=== PATIENT | female | born 1955 | race Caucasian/White ===

== ENCOUNTER 2021-11-07 16:07 | Inpatient (IN) | payer MEDICARE, BC ==
[2021-11-07] MEDS ORDERED: Ondansetron PF 4 MG/2 ML Vial ONE (17:28)
[2021-11-07] MEDS ORDERED: Lorazepam 2 MG/ML VIAL ONE (17:29)
[2021-11-07 17:40] LABS: CKMB 11.6 ng/mL (0-6.6)
[2021-11-07] MEDS ORDERED: Ondansetron PF 4 MG/2 ML Vial IVP PRN (18:29)
[2021-11-07] MEDS ORDERED: Ondansetron ODT 4 MG TAB PO PRN (18:29)
[2021-11-07] MEDS ORDERED: Pantoprazole 40 MG VIAL IVP SCH (18:30)
[2021-11-07] MEDS ORDERED: Benzonatate 100 MG CAP PO PRN (18:31)
[2021-11-07] MEDS ORDERED: Guaifenesin DM 100-10/5 ML UDCUP PO PRN (18:31)
[2021-11-07] MEDS ORDERED: Furosemide 40 MG/4 ML VIAL SLOW IVP SCH (18:45)
[2021-11-07 18:58] LABS: #Monocytes 0.6 10x3/uL (0.0-1.1); #Neutrophils 5.5 10x3/uL (1.5-8.4); %Basophils 0.1 % (0.0-2.0); %Lymphocytes 11.8 % (18.0-47.0); %Monocytes 7.9 % (0.0-10.0); %Neutrophils 79.8 % (40.0-75.0); Hemoglobin 6.8 g/dL (12.0-15.5); Mean Corpuscular HGB CONC 29.4 g/dL (32.0-36.0); Mean Corpuscular Hemoglobin 24.5 pg (27.0-33.0); Mean Corpuscular Volume 83.1 fl (81.6-98.3); Mean Platelet Volume 9.9 fl (7.4-10.4); Platelet Count 156 10x3/uL (150-450); RBC Distribution Width 18.4 % (11.5-14.5); Red Blood Cell (RBC) Count 2.78 10x6/uL (3.90-5.03); White Blood Cell (WBC) Count 6.9 10x3/uL (3.5-10.5)
[2021-11-07 19:02] LABS: Prothrombin Time 11.2 sec (9.5-12.1)
[2021-11-07] MEDS ORDERED: Aspirin Chewable 81 MG TAB ONE (19:04)
[2021-11-07 19:06] LABS: Iron 17 ug/dL (50-170); Iron Binding Capacity, Total 429 mcg/dL (265-497)
[2021-11-07] MEDS ORDERED: Pantoprazole 40 MG VIAL ONE (19:09)
[2021-11-07] MEDS ORDERED: Ventolin HFA Inhaler 60 PUFF INHALER ONE (19:14)
[2021-11-07] MEDS: Ventolin HFA Inhaler 60 PUFF INHALER INH SCH (19:15)
[2021-11-07 19:16] LABS: Anisocytosis SLIGHT = 6-15 cells (100X) (0-5/hpf); Hypochromia MODERATE=16-30 cells (100X) (0-5/hpf); Polychromasia SLIGHT = 2-3 cells (100X) (0-2/hpf)
[2021-11-07 19:17] LABS: Platelet Morphology Comment Appears Adequate; Stomatocytes SLIGHT = 2-5 cells (100X) (0-1/hpf)
[2021-11-07 19:25] LABS: Ferritin 39.59 ng/mL (10-291)
[2021-11-07 21:16] LABS: Troponin I 2.926 ng/mL (< 0.028)
[2021-11-07] MEDS ORDERED: Nitroglycerin 2% Ointment 1 INCH/1 GM Packet ONE (21:25)
[2021-11-07] MEDS ORDERED: Acetaminophen 325 MG TAB ONE (21:25)
[2021-11-07] MEDS: Acetaminophen 325 MG TAB PO PRN (21:26)
[2021-11-07] MEDS: Nitroglycerin 2% Ointment 1 INCH/1 GM Packet TOP SCH (21:35)
[2021-11-07] MEDS ORDERED: Furosemide 40 MG/4 ML VIAL ONE (22:11)
[2021-11-08] MEDS ORDERED: Lorazepam 0.5 MG TAB PO SCH (01:15)
[2021-11-08] MEDS ORDERED: traMADol HCl 50 MG TAB PO SCH (01:15)
[2021-11-08 03:28] VITALS: BMI 35.6
[2021-11-08] MEDS ORDERED: Furosemide 40 MG/4 ML VIAL SLOW IVP SCH (06:00)
[2021-11-08] MEDS: Nitroglycerin 2% Ointment 1 INCH/1 GM Packet TOP SCH (06:13)
[2021-11-08 06:24] LABS: #Monocytes 0.6 10x3/uL (0.0-1.1); #Neutrophils 5.4 10x3/uL (1.5-8.4); %Basophils 0.3 % (0.0-2.0); %Eosinophils 0.4 % (0.0-6.0); %Lymphocytes 15.7 % (18.0-47.0); %Monocytes 7.9 % (0.0-10.0); %Neutrophils 75.4 % (40.0-75.0); Hemoglobin 7.9 g/dL (12.0-15.5); Mean Corpuscular HGB CONC 28.9 g/dL (32.0-36.0); Mean Corpuscular Hemoglobin 24.6 pg (27.0-33.0); Mean Platelet Volume 9.8 fl (7.4-10.4); Platelet Count 162 10x3/uL (150-450); RBC Distribution Width 18.3 % (11.5-14.5); Red Blood Cell (RBC) Count 3.21 10x6/uL (3.90-5.03); White Blood Cell (WBC) Count 7.1 10x3/uL (3.5-10.5)
[2021-11-08 06:46] LABS: Anion Gap 15 mmol/L (10-20); BUN (Urea Nitrogen) 18 mg/dL (9.8-20.1); Calc. Creatinine Clearance 55 mL/min (70-130); Calcium 9.2 mg/dL (7.8-10.44); Carbon Dioxide 27 mmol/L (23-31); Chloride 107 mmol/L (98-107); Glucose 93 mg/dL (80-115); Magnesium 1.7 mg/dL (1.6-2.6); Potassium 3.9 mmol/L (3.5-5.1); Sodium 145 mmol/L (136-145)
[2021-11-08 06:52] LABS: Hypochromia MODERATE=16-30 cells (100X) (0-5/hpf); Microcytosis SLIGHT = 6-15 cells (100X) (0-5/hpf); Platelet Morphology Comment Appears Adequate
[2021-11-08] MEDS: Ventolin HFA Inhaler 60 PUFF INHALER INH SCH ×2 (07:26→13:58)
[2021-11-08] MEDS: Acetaminophen 325 MG TAB PO PRN (08:37)
[2021-11-08] MEDS ORDERED: Zinc Sulfate 220 MG CAP PO SCH (09:00)
[2021-11-08] MEDS ORDERED: Cholecalciferol 1,000 UNITS (25 MCG) TAB PO SCH (09:00)
[2021-11-08] MEDS ORDERED: Azithromycin 500 MG in Sodium Chloride 0.9% 250 ML 250 ML IVPB SCH (09:00)
[2021-11-08] MEDS ORDERED: Pantoprazole 40 MG VIAL IVP SCH ×2 (09:00)
[2021-11-08] MEDS ORDERED: Ascorbic Acid 500 mg Chewable Tablet PO SCH (09:00)
[2021-11-08] MEDS ORDERED: traMADol HCl 50 MG TAB PO PRN (09:44)
[2021-11-08] MEDS ORDERED: Tiotropium Bromide 4 GM INHALER IH SCH (10:45)
[2021-11-08 12:25] LABS: Hemoglobin 7.6 g/dL (12.0-15.5); Platelet Count 154 10x3/uL (150-450)
[2021-11-08] MEDS ORDERED: Gabapentin 300 MG CAP PO SCH (15:00)
[2021-11-08 16:12] VITALS: BP 150/75; TEMP 98.3
[2021-11-08] MEDS ORDERED: Mometasone/Formoterol 60 PUFF AER INH SCH (18:30)
[2021-11-08] MEDS ORDERED: traZODone HCl 50 MG TAB PO SCH (21:00)
[2021-11-08] MEDS ORDERED: Ivabradine 5 MG TAB PO SCH (21:00)
[2021-11-09] MEDS ORDERED: Aspirin 81 mg Enteric Coated Tablet PO SCH (09:00)
[2021-11-09] MEDS ORDERED: Clopidogrel Bisulfate 75 MG TAB PO SCH (09:00)
[2021-11-09] MEDS ORDERED: Carvedilol 25 MG TAB PO SCH (09:00)
[2021-11-09] MEDS ORDERED: Allopurinol 300 MG TAB PO SCH (09:00)
[2021-11-09] MEDS ORDERED: Furosemide 40 MG/4 ML VIAL SLOW IVP SCH (09:00)
[2021-11-09] MEDS ORDERED: Cholecalciferol 1,000 UNITS (25 MCG) TAB PO SCH (09:00)
[2021-11-09] MEDS ORDERED: Escitalopram Oxalate 10 mg Tablet PO SCH (09:00)
[2021-11-09] MEDS ORDERED: Tiotropium Bromide 4 GM INHALER IH SCH (09:00)
== END 2021-11-08 15:50 | disposition left against medical advice (07) | DRG 177 ==
LOC: CSHERS 16:07 → CSHERHOLD 17:48 → CSHTELE 23:39
PROVIDERS: ADMIT Family Medicine; ATTEND Family Medicine
PROC: 30233N1 Transfusion of Nonautologous Red Blood Cells into Peripheral Vein, Percutaneous Approach (ICD-10-PCS; principal; 2021-11-07)
PROC: 8E0ZXY6 Isolation (ICD-10-PCS; 2021-11-07)
DX: U07.1 COVID-19 (principal); I21.A1 Myocardial infarction type 2; I50.23 Acute on chronic systolic (congestive) heart failure; D62 Acute posthemorrhagic anemia; J44.1 Chronic obstructive pulmonary disease with (acute) exacerbation; K92.2 Gastrointestinal hemorrhage, unspecified; I25.10 Atherosclerotic heart disease of native coronary artery without angina pectoris; I11.0 Hypertensive heart disease with heart failure; I25.2 Old myocardial infarction; Z95.810 Presence of automatic (implantable) cardiac defibrillator; Z88.8 Allergy status to other drugs, medicaments and biological substances; Z79.82 Long term (current) use of aspirin; Z79.02 Long term (current) use of antithrombotics/antiplatelets; Z79.899 Other long term (current) drug therapy; Z90.49 Acquired absence of other specified parts of digestive tract; Z90.710 Acquired absence of both cervix and uterus; Z87.891 Personal history of nicotine dependence
CPT/HCPCS: 36415; 36416; 36430; 80048; 82553; 82607; 82728; 82746; 83540; 83550; 83735; 84443; 84484; 85025; 85046; 85610; 86140; 86850; 86900; 86901; 93005; 93010; 94760; C9113; J0456; J1940; J2060; J2405; J7050; P9016

== ENCOUNTER 2021-12-15 21:16 | Inpatient (IN) | payer MEDICARE, BC ==
[2021-12-15] MEDS ORDERED: Amiodarone In Dextrose 200 ML ONE (21:24)
[2021-12-15] MEDS ORDERED: Magnesium 2 GM/50 ML BAG (IN WATER) ONE ×2 (21:26→22:35)
[2021-12-15] MEDS ORDERED: Fentanyl 100 MCG/2 ML VIAL ONE (21:30)
[2021-12-15 21:41] LABS: #Monocytes 0.7 10x3/uL (0.0-1.1); %Basophils 0.2 % (0.0-2.0); %Lymphocytes 5.3 % (18.0-47.0); %Monocytes 5.6 % (0.0-10.0); %Neutrophils 88.7 % (40.0-75.0); Hemoglobin 10.5 g/dL (12.0-15.5); Mean Corpuscular HGB CONC 30.8 g/dL (32.0-36.0); Mean Corpuscular Hemoglobin 25.5 pg (27.0-33.0); Mean Corpuscular Volume 82.8 fl (81.6-98.3); Mean Platelet Volume 9.6 fl (7.4-10.4); Platelet Count 219 10x3/uL (150-450); RBC Distribution Width 19.7 % (11.5-14.5); Red Blood Cell (RBC) Count 4.12 10x6/uL (3.90-5.03); White Blood Cell (WBC) Count 12.4 10x3/uL (3.5-10.5)
[2021-12-15] MEDS ORDERED: Metoprolol Tartrate 5 MG/5 ML VIAL ONE (21:46)
[2021-12-15 21:55] LABS: INR-International Normal Ratio 1.1; PTT 26.6 sec (22.0-33.0); Prothrombin Time 12.4 sec (9.5-12.1)
[2021-12-15 21:56] LABS: ALT (SGPT) 9 U/L (8-55); AST (SGOT) 24 U/L (5-34); Albumin 4.2 g/dL (3.4-4.8); Alkaline Phosphatase 126 U/L (40-110); Anion Gap 22 mmol/L (10-20); BUN (Urea Nitrogen) 13 mg/dL (9.8-20.1); Bilirubin, Total 0.3 mg/dL (0.2-1.2); CK (CPK) 142 U/L (29-168); Calc. Creatinine Clearance 0 mL/min (70-130); Calcium 9.4 mg/dL (7.8-10.44); Carbon Dioxide 18 mmol/L (23-31); Chloride 100 mmol/L (98-107); Globulin 3.1 g/dL (2.4-3.5); Glucose 247 mg/dL (80-115); Lipase 15 U/L (8-78); Magnesium 1.3 mg/dL (1.6-2.6); Protein, Total 7.3 g/dL (5.8-8.1); Sodium 137 mmol/L (136-145)
[2021-12-15 21:58] LABS: Potassium 2.8 mmol/L (3.5-5.1)
[2021-12-15] MEDS ORDERED: Morphine 4 MG/ML VIAL ONE (22:01)
[2021-12-15] MEDS ORDERED: Potassium Chloride 20 MEQ TAB ONE (22:07)
[2021-12-15 22:19] LABS: CKMB 8.6 ng/mL (0-6.6)
[2021-12-15] MEDS ORDERED: Potassium Chloride 20 MEQ/100 ML PREMIX BAG ONE (22:35)
[2021-12-15 22:43] LABS: SARS-CoV-2 NAA Rapid Test Not Detected (NotDetected)
[2021-12-15] MEDS ORDERED: Aspirin Chewable 81 MG TAB ONE (23:31)
[2021-12-15] MEDS ORDERED: Acetaminophen 500 MG TAB ONE (23:32)
[2021-12-15] MEDS ORDERED: Enoxaparin Sodium 80 MG/0.8 ML SYRINGE ONE (23:32)
[2021-12-16] MEDS ORDERED: Morphine 4 MG/ML VIAL ONE (01:48)
[2021-12-16] MEDS ORDERED: Acetaminophen 325 MG TAB PO PRN (02:05)
[2021-12-16] MEDS ORDERED: Amiodarone In Dextrose 0 ML ONE (03:10)
[2021-12-16] MEDS ORDERED: Metoprolol Tartrate 5 MG/5 ML VIAL IVP SCH ×3 (05:15→10:00)
[2021-12-16] MEDS ORDERED: Metoprolol Tartrate 5 MG/5 ML VIAL ONE (05:27)
[2021-12-16] MEDS ORDERED: Nitroglycerin 2% Ointment 1 INCH/1 GM Packet ONE (05:28)
[2021-12-16] MEDS ORDERED: Amiodarone 450 MG, Admixture Fee 1 EACH in Dextrose 5% in Water 250 ML IVPB SCH (06:30)
[2021-12-16] MEDS ORDERED: Nitroglycerin 2% Ointment 1 INCH/1 GM Packet TOP SCH (06:30)
[2021-12-16] MEDS: Ipratropium Bromide 2.5 ml Neb NEB SCH ×3 (07:11→19:25)
[2021-12-16 08:01] LABS: Anion Gap 18 mmol/L (10-20); BUN (Urea Nitrogen) 14 mg/dL (9.8-20.1); Calc. Creatinine Clearance 0 mL/min (70-130); Carbon Dioxide 21 mmol/L (23-31); Chloride 102 mmol/L (98-107); Potassium 4.2 mmol/L (3.5-5.1); Sodium 137 mmol/L (136-145)
[2021-12-16 08:02] LABS: Calcium 9.6 mg/dL (7.8-10.44); Glucose 124 mg/dL (80-115); Magnesium 2.3 mg/dL (1.6-2.6)
[2021-12-16 08:03] LABS: Troponin I 5.634 ng/mL (< 0.028)
[2021-12-16 08:09] LABS: #Neutrophils 9.5 10x3/uL (1.5-8.4); %Basophils 0.3 % (0.0-2.0); %Lymphocytes 10.5 % (18.0-47.0); %Monocytes 8.8 % (0.0-10.0); %Neutrophils 79.9 % (40.0-75.0); Hemoglobin 10.1 g/dL (12.0-15.5); Mean Corpuscular HGB CONC 30.8 g/dL (32.0-36.0); Mean Corpuscular Hemoglobin 25.6 pg (27.0-33.0); Mean Platelet Volume 9.2 fl (7.4-10.4); Platelet Count 200 10x3/uL (150-450); RBC Distribution Width 19.6 % (11.5-14.5); Red Blood Cell (RBC) Count 3.95 10x6/uL (3.90-5.03); White Blood Cell (WBC) Count 11.8 10x3/uL (3.5-10.5)
[2021-12-16 08:14] LABS: CKMB 31.7 ng/mL (0-6.6)
[2021-12-16] MEDS: Clopidogrel Bisulfate 75 MG TAB PO SCH (08:28)
[2021-12-16] MEDS: Spironolactone 25 MG TAB PO SCH (08:28)
[2021-12-16] MEDS: Ivabradine 5 MG TAB PO SCH ×2 (08:28→21:33)
[2021-12-16] MEDS: Carvedilol 25 MG TAB PO SCH ×2 (08:28→16:38)
[2021-12-16] MEDS: Ubidecarenone 50 MG CAP PO SCH (08:37)
[2021-12-16] MEDS: Mometasone 100 MCG/Formoterol 5 MCG 120 PUFF INHALER INH SCH ×2 (08:38→19:25)
[2021-12-16] MEDS ORDERED: Escitalopram Oxalate 10 mg Tablet PO SCH (09:00)
[2021-12-16 09:15] VITALS: BMI 33.6
[2021-12-16 09:50] LABS: Amphetamine Not Detected (NotDetected); Barbiturates Screen Detected (NotDetected); Benzodiazepine Screen Not Detected (NotDetected); Cocaine Metabolite Screen Not Detected (NotDetected); Methadone Not Detected (NotDetected); Methamphetamine Not Detected (NotDetected); Opiate Screen Detected (NotDetected); Oxycodone Screen Not Detected (NotDetected); Phencyclidine (PCP) Not Detected (NotDetected); THC/Cannabinoid Screen Detected (NotDetected); Tricyclic Screen Not Detected (NotDetected)
[2021-12-16] MEDS ORDERED: Aspirin 81 mg Enteric Coated Tablet PO SCH (10:00)
[2021-12-16 10:19] LABS: Troponin I 4.314 ng/mL (< 0.028)
[2021-12-16] MEDS ORDERED: Furosemide 20 MG TAB PO SCH (10:30)
[2021-12-16] MEDS ORDERED: Enoxaparin Sodium 80 MG/0.8 ML SYRINGE SC SCH (11:15)
[2021-12-16 11:34] LABS: INR-International Normal Ratio 1.1; PTT 29.6 sec (22.0-33.0); Prothrombin Time 12.3 sec (9.5-12.1)
[2021-12-16] MEDS: Amiodarone In Dextrose 360 MG in Premix Bag 1 BAG IVPB SCH (11:45)
[2021-12-16] MEDS ORDERED: Ondansetron HCl/PF 4 MG in Sodium Chloride 0.9% 50 ML IVPB PRN ×2 (12:30→12:40)
[2021-12-16] MEDS: Furosemide 20 MG TAB PO SCH (14:11)
[2021-12-16] MEDS ORDERED: Promethazine HCl 12.5 MG in Sodium Chloride 0.9% 50 ML IVPB PRN (16:08)
[2021-12-16] MEDS: hydrALAZINE 20 MG/ML VIAL SLOW IVP PRN (18:05)
[2021-12-16] MEDS ORDERED: Mometasone/Formoterol 60 PUFF AER INH SCH (19:00)
[2021-12-16] MEDS: Acetaminophen 325 MG TAB PO PRN (20:10)
[2021-12-16] MEDS ORDERED: traZODone HCl 50 MG TAB PO SCH (21:00)
[2021-12-16] MEDS: hydrALAZINE 25 MG TAB PO SCH (21:33)
[2021-12-16] MEDS: Enoxaparin Sodium 80 MG/0.8 ML SYRINGE SC SCH (21:33)
[2021-12-16] MEDS ORDERED: traMADol HCl 50 MG TAB PO SCH (22:00)
[2021-12-17] MEDS: Acetaminophen 325 MG TAB PO PRN ×2 (01:04→08:16)
[2021-12-17] MEDS: Amiodarone In Dextrose 360 MG in Premix Bag 1 BAG IVPB SCH (01:05)
[2021-12-17] MEDS: Ipratropium Bromide 2.5 ml Neb NEB SCH ×4 (01:19→18:45)
[2021-12-17] MEDS: hydrALAZINE 20 MG/ML VIAL SLOW IVP PRN ×2 (02:35→13:40)
[2021-12-17 04:56] LABS: #Monocytes 0.9 10x3/uL (0.0-1.1); #Neutrophils 8.5 10x3/uL (1.5-8.4); %Basophils 0.2 % (0.0-2.0); %Eosinophils 0.2 % (0.0-6.0); %Lymphocytes 12.2 % (18.0-47.0); %Monocytes 8.3 % (0.0-10.0); %Neutrophils 78.8 % (40.0-75.0); Hemoglobin 10.3 g/dL (12.0-15.5); Mean Corpuscular HGB CONC 30.8 g/dL (32.0-36.0); Mean Corpuscular Hemoglobin 25.7 pg (27.0-33.0); Mean Corpuscular Volume 83.3 fl (81.6-98.3); Mean Platelet Volume 9.7 fl (7.4-10.4); Platelet Count 211 10x3/uL (150-450); RBC Distribution Width 19.8 % (11.5-14.5); Red Blood Cell (RBC) Count 4.01 10x6/uL (3.90-5.03); White Blood Cell (WBC) Count 10.8 10x3/uL (3.5-10.5)
[2021-12-17 05:03] LABS: Anion Gap 16 mmol/L (10-20); BUN (Urea Nitrogen) 12 mg/dL (9.8-20.1); Calc. Creatinine Clearance 59 mL/min (70-130); Carbon Dioxide 23 mmol/L (23-31); Chloride 101 mmol/L (98-107); Glucose 128 mg/dL (80-115); Magnesium 1.6 mg/dL (1.6-2.6); Potassium 3.3 mmol/L (3.5-5.1); Sodium 137 mmol/L (136-145)
[2021-12-17] MEDS: Mometasone/Formoterol 60 PUFF AER INH SCH ×2 (06:59→18:45)
[2021-12-17] MEDS ORDERED: Electrolyte Replacement Protocol 1 EACH FS SCH (07:45)
[2021-12-17] MEDS: Clopidogrel Bisulfate 75 MG TAB PO SCH (08:14)
[2021-12-17] MEDS: Enoxaparin Sodium 80 MG/0.8 ML SYRINGE SC SCH ×2 (08:14→21:06)
[2021-12-17] MEDS: Spironolactone 25 MG TAB PO SCH (08:14)
[2021-12-17] MEDS: Carvedilol 25 MG TAB PO SCH ×2 (08:14→16:41)
[2021-12-17] MEDS: Aspirin 81 mg Enteric Coated Tablet PO SCH (08:14)
[2021-12-17] MEDS: hydrALAZINE 25 MG TAB PO SCH (08:15)
[2021-12-17] MEDS: Furosemide 20 MG TAB PO SCH ×2 (08:15→13:44)
[2021-12-17] MEDS: Ubidecarenone 50 MG CAP PO SCH (08:16)
[2021-12-17] MEDS: Ivabradine 5 MG TAB PO SCH ×2 (08:16→21:06)
[2021-12-17] MEDS ORDERED: Magnesium Sulfate 4 GM in Sodium Chloride 0.9% 250 ML 250 ML IVPB SCH (08:30)
[2021-12-17] MEDS ORDERED: Furosemide 40 MG/4 ML VIAL SLOW IVP SCH (09:00)
[2021-12-17] MEDS ORDERED: Potassium Chloride 20 MEQ TAB PO SCH (09:00)
[2021-12-17] MEDS ORDERED: hydrALAZINE 25 MG TAB PO SCH ×2 (09:00→15:00)
[2021-12-17] MEDS: Magnesium 2 GM/50 ML 2 GM in Premix Bag 1 BAG IVPB SCH ×2 (09:42→11:08)
[2021-12-17] MEDS ORDERED: Communication Order-Pharmacy FS SCH (11:15)
[2021-12-17] MEDS: traMADol HCl 50 MG TAB PO PRN ×2 (14:19→22:07)
[2021-12-17] MEDS ORDERED: ALPRAZolam 0.25 MG TAB PO PRN (14:59)
[2021-12-17] MEDS: Potassium Chloride 20 MEQ TAB PO SCH (17:29)
[2021-12-17] MEDS ORDERED: Amiodarone 200 MG TAB PO SCH (21:00)
[2021-12-18] MEDS: Ipratropium Bromide 2.5 ml Neb NEB SCH ×3 (01:05→13:50)
[2021-12-18] MEDS: hydrALAZINE 20 MG/ML VIAL SLOW IVP PRN ×2 (01:51→10:30)
[2021-12-18] MEDS ORDERED: Labetalol HCl 100 MG/20 ML VIAL SLOW IVP SCH (03:45)
[2021-12-18] MEDS ORDERED: Labetalol HCl 100 MG/20 ML VIAL SLOW IVP PRN (04:00)
[2021-12-18 04:21] LABS: Magnesium 2.3 mg/dL (1.6-2.6); Potassium 4.1 mmol/L (3.5-5.1)
[2021-12-18 04:28] LABS: Phosphorus 1.1 mg/dL (2.3-4.7)
[2021-12-18] MEDS: Mometasone/Formoterol 60 PUFF AER INH SCH (07:00)
[2021-12-18] MEDS ORDERED: Nitroglycerin 50 MG/250 ML BOT 250 ML ONE ×2 (07:09)
[2021-12-18] MEDS ORDERED: Heparin 10,000 UNITS/ 10 ML VIAL ONE ×2 (07:10)
[2021-12-18] MEDS ORDERED: Verapamil 5 MG/2 ML VIAL ONE (07:10)
[2021-12-18] MEDS ORDERED: Adenosine 6 MG/2 ML VIAL ONE (07:11)
[2021-12-18] MEDS ORDERED: Bivalirudin 250 MG VIAL ONE (07:11)
[2021-12-18] MEDS ORDERED: Lidocaine 1% PF 5 ML VIAL ONE (07:28)
[2021-12-18] MEDS ORDERED: Fentanyl 100 MCG/2 ML VIAL ONE (07:59)
[2021-12-18] MEDS ORDERED: Midazolam HCl 2 mg/2 ml Vial ONE (08:00)
[2021-12-18] MEDS ORDERED: Atropine Sulfate 0.4 mg/1 ml Vial ONE (08:08)
[2021-12-18] MEDS: PHOS-NAK 1 PKT PACK PO SCH ×3 (08:08→13:14)
[2021-12-18] MEDS ORDERED: Ondansetron PF 4 MG/2 ML Vial ONE (08:08)
[2021-12-18] MEDS ORDERED: Nitroglycerin 0.4 MG TAB (25 Tab Bottle) SL PRN (08:37)
[2021-12-18] MEDS ORDERED: Acetaminophen/Codeine 30-300mg Tablet PO PRN ×2 (08:37)
[2021-12-18] MEDS ORDERED: Sodium Chloride 0.9% 200 ML IV PRN (08:37)
[2021-12-18] MEDS ORDERED: ALPRAZolam 0.25 MG TAB PO PRN (08:40)
[2021-12-18] MEDS: Potassium Chloride 20 MEQ TAB PO SCH (10:39)
[2021-12-18] MEDS: Carvedilol 25 MG TAB PO SCH (10:39)
[2021-12-18] MEDS: Furosemide 20 MG TAB PO SCH ×2 (10:40→13:15)
[2021-12-18] MEDS: Spironolactone 25 MG TAB PO SCH (10:41)
[2021-12-18] MEDS: Ivabradine 5 MG TAB PO SCH (10:43)
[2021-12-18] MEDS: Ubidecarenone 50 MG CAP PO SCH (10:45)
[2021-12-18 10:54] VITALS: BP 153/102
[2021-12-18] MEDS: Clopidogrel Bisulfate 75 MG TAB PO SCH (11:51)
[2021-12-18] MEDS: Aspirin 81 mg Enteric Coated Tablet PO SCH (11:52)
== END 2021-12-18 16:30 | disposition home or self-care (01) | DRG 280 ==
LOC: CSHERS 21:16 → CSHIMCU 12-16 02:21
PROVIDERS: ADMIT Family Medicine; ATTEND Internal Medicine
PROC: 4A023N7 Measurement of Cardiac Sampling and Pressure, Left Heart, Percutaneous Approach (ICD-10-PCS; principal; 2021-12-18)
PROC: B2111ZZ Fluoroscopy of Multiple Coronary Arteries using Low Osmolar Contrast (ICD-10-PCS; 2021-12-18)
DX: I47.1 Supraventricular tachycardia (principal); I21.4 Non-ST elevation (NSTEMI) myocardial infarction; I50.23 Acute on chronic systolic (congestive) heart failure; J44.9 Chronic obstructive pulmonary disease, unspecified; R94.31 Abnormal electrocardiogram [ECG] [EKG]; E87.6 Hypokalemia; I11.0 Hypertensive heart disease with heart failure; I25.10 Atherosclerotic heart disease of native coronary artery without angina pectoris; Z20.822 Contact with and (suspected) exposure to COVID-19; E83.42 Hypomagnesemia; I25.5 Ischemic cardiomyopathy; I25.82 Chronic total occlusion of coronary artery; Z95.810 Presence of automatic (implantable) cardiac defibrillator; Z90.710 Acquired absence of both cervix and uterus; Z90.49 Acquired absence of other specified parts of digestive tract; Z87.891 Personal history of nicotine dependence; Z88.8 Allergy status to other drugs, medicaments and biological substances; Z79.02 Long term (current) use of antithrombotics/antiplatelets; Z79.899 Other long term (current) drug therapy
CPT/HCPCS: 36415; 71045; 71275; 80048; 80306; 82550; 82553; 83690; 83735; 83880; 84100; 84132; 84443; 84484; 85025; 85610; 85730; 86850; 86900; 86901; 93005; 93010; 93306; 93458; 94640; 94664; 94760; 96365; 96366; 96368; 96372; 96375; 96376; 97139; 99152; 99153; J0153; J0282; J0360; J0461; J0583; J1644; J1650; J2250; J2270; J2405; J3010; J3475; J3480; U0002

== ENCOUNTER 2021-12-22 06:21 | Emergency (ER) | payer MEDICARE, BC ==
[2021-12-22 06:42] LABS: #Monocytes 1.4 10x3/uL (0.0-1.1); #Neutrophils 12.7 10x3/uL (1.5-8.4); %Basophils 0.1 % (0.0-2.0); %Eosinophils 0.1 % (0.0-6.0); %Lymphocytes 4.3 % (18.0-47.0); %Monocytes 9.5 % (0.0-10.0); %Neutrophils 84.4 % (40.0-75.0); Hemoglobin 7.9 g/dL (12.0-15.5); Mean Corpuscular HGB CONC 30.2 g/dL (32.0-36.0); Mean Corpuscular Volume 86.2 fl (81.6-98.3); Mean Platelet Volume 10.9 fl (7.4-10.4); Platelet Count 132 10x3/uL (150-450); RBC Distribution Width 19.2 % (11.5-14.5); Red Blood Cell (RBC) Count 3.04 10x6/uL (3.90-5.03)
[2021-12-22 06:44] LABS: Bilirubin Neg (Negative); Blood, Urine 50 (Negative); Clarity Cloudy (Clear); Glucose, Urine (Dipstick) Normal (Negative); Ketone, Urine Negative (Negative); Leukocyte 500 (Negative); Nitrite Negative (Negative); Protein, Urine (Dipstick) 100 mg/dl (Neg-Trace); Urobilinogen Normal mg/dL (Less than 2)
[2021-12-22] MEDS ORDERED: Cefepime 2 GM VIAL ONE (06:48)
[2021-12-22 06:55] LABS: ALT (SGPT) 11 U/L (8-55); AST (SGOT) 18 U/L (5-34); Albumin 3.6 g/dL (3.4-4.8); Alkaline Phosphatase 116 U/L (40-110); Anion Gap 19 mmol/L (10-20); BUN (Urea Nitrogen) 47 mg/dL (9.8-20.1); Bilirubin, Total 0.6 mg/dL (0.2-1.2); CK (CPK) 54 U/L (29-168); Calc. Creatinine Clearance 0 mL/min (70-130); Calcium 8.6 mg/dL (7.8-10.44); Carbon Dioxide 15 mmol/L (23-31); Chloride 102 mmol/L (98-107); Globulin 2.4 g/dL (2.4-3.5); Glucose 113 mg/dL (80-115); Lipase 37 U/L (8-78); Magnesium 1.5 mg/dL (1.6-2.6); Potassium 6.3 mmol/L (3.5-5.1); Sodium 130 mmol/L (136-145)
[2021-12-22 07:02] LABS: WBC/HPF Greater Than 50 HPF (0-3)
[2021-12-22 07:03] LABS: Bacteria/HPF 3+ HPF (None Seen); Squamous Epithelial 0-3 HPF (0-3)
[2021-12-22 07:18] LABS: CKMB 0.9 ng/mL (0-6.6)
[2021-12-22 07:46] LABS: SARS-CoV-2 NAA Rapid Test DETECTED (NotDetected)
[2021-12-22] MEDS ORDERED: Calcium Chloride 1 GM/10 ML Abboject SYRINGE ONE (07:47)
[2021-12-22] MEDS ORDERED: Sodium Bicarb 50 MEQ/50 ML VIAL ONE ×2 (07:48)
[2021-12-22 07:49] LABS: INR-International Normal Ratio 1.1; Prothrombin Time 12.3 sec (9.5-12.1)
[2021-12-22 09:07] LABS: PTT 32.6 sec (22.0-33.0)
[2021-12-22 09:14] LABS: Anion Gap 16 mmol/L (10-20); BUN (Urea Nitrogen) 44 mg/dL (9.8-20.1); Calc. Creatinine Clearance 0 mL/min (70-130); Calcium 9.1 mg/dL (7.8-10.44); Carbon Dioxide 15 mmol/L (23-31); Chloride 105 mmol/L (98-107); Glucose 121 mg/dL (80-115); Potassium 6.3 mmol/L (3.5-5.1); Sodium 130 mmol/L (136-145)
== END 2021-12-22 09:17 | disposition short-term general hospital (02) ==
LOC: CSHERS 06:21
DX: S06.5X9A Traumatic subdural hemorrhage with loss of consciousness of unspecified duration, initial encounter (principal); A41.89 Other specified sepsis; U07.1 COVID-19; A41.9 Sepsis, unspecified organism; N17.9 Acute kidney failure, unspecified; D64.9 Anemia, unspecified; E87.5 Hyperkalemia; Z79.899 Other long term (current) drug therapy; Z79.82 Long term (current) use of aspirin; Z79.01 Long term (current) use of anticoagulants; W19.XXXA Unspecified fall, initial encounter
CPT/HCPCS: 36430; 51701; 70450; 71045; 72125; 74177; 80048; 82550; 82553; 83605; 83690; 83735; 83880; 84439; 84484; 85610; 85730; 86850; 86900; 86901; 87040; 87077; 87086; 87149 ×2; 87186; 93005; 96374; 96375; 99285; P9035; U0002; 36415; 80053; 81003; 81015; 84443; 85025; 93010; J0692; J3370; J7620

== ENCOUNTER 2021-12-30 10:11 | Emergency (ER) | payer MEDICARE, BC ==
[2021-12-30] MEDS ORDERED: methylPREDNISolone Sod Succ/PF 125 MG/2 ML VIAL ONE (11:10)
[2021-12-30] MEDS ORDERED: Metoclopramide HCl 10 MG/2 ML VIAL ONE (11:11)
[2021-12-30] MEDS ORDERED: diphenhydrAMINE 50 MG/ML VIAL ONE ×2 (11:11→12:38)
[2021-12-30 11:50] LABS: #Eosinphils 0.1 10x3/uL (0.0-0.5); #Monocytes 0.5 10x3/uL (0.0-1.1); #Neutrophils 9.9 10x3/uL (1.5-8.4); %Basophils 0.2 % (0.0-2.0); %Eosinophils 0.5 % (0.0-6.0); %Lymphocytes 7.5 % (18.0-47.0); %Monocytes 3.9 % (0.0-10.0); %Neutrophils 86.8 % (40.0-75.0)
[2021-12-30 11:55] LABS: Hemoglobin 9.1 g/dL (12.0-15.5); Mean Corpuscular HGB CONC 29.6 g/dL (32.0-36.0); Mean Corpuscular Hemoglobin 24.7 pg (27.0-33.0); Mean Corpuscular Volume 83.4 fl (81.6-98.3); Mean Platelet Volume 10.1 fl (7.4-10.4); Platelet Count 222 10x3/uL (150-450); RBC Distribution Width 19.1 % (11.5-14.5); Red Blood Cell (RBC) Count 3.68 10x6/uL (3.90-5.03); White Blood Cell (WBC) Count 11.4 10x3/uL (3.5-10.5)
[2021-12-30 11:58] LABS: ALT (SGPT) 20 U/L (8-55); AST (SGOT) 24 U/L (5-34); Albumin 3.8 g/dL (3.4-4.8); Alkaline Phosphatase 131 U/L (40-110); Anion Gap 16 mmol/L (10-20); BUN (Urea Nitrogen) 15 mg/dL (9.8-20.1); Bilirubin, Total 0.4 mg/dL (0.2-1.2); Calc. Creatinine Clearance 0 mL/min (70-130); Carbon Dioxide 23 mmol/L (23-31); Chloride 105 mmol/L (98-107); Globulin 3.2 g/dL (2.4-3.5); Glucose 140 mg/dL (80-115); Potassium 4.5 mmol/L (3.5-5.1); Sodium 139 mmol/L (136-145)
[2021-12-30 12:16] LABS: Hypochromia SLIGHT = 6-15 cells (100X) (0-5/hpf); Ovalocytes SLIGHT = 2-5 cells (100X) (0-1/hpf); Polychromasia SLIGHT = 2-3 cells (100X) (0-2/hpf); Stomatocytes SLIGHT = 2-5 cells (100X) (0-1/hpf)
[2021-12-30 12:17] LABS: Platelet Morphology Comment Appears Adequate
[2021-12-30] MEDS ORDERED: Lorazepam 2 MG/ML VIAL ONE (12:38)
== END 2021-12-30 16:20 | disposition home or self-care (01) ==
LOC: CSHERS 10:11
DX: I10 Essential (primary) hypertension (principal); R51.9 Headache, unspecified; M19.90 Unspecified osteoarthritis, unspecified site
CPT/HCPCS: 36415; 70450; 80053; 84484; 85025; 93005; 96365; 96375; 96376; J1200; J2060; J2765; J2930

== ENCOUNTER 2022-06-04 12:21 | Emergency (ER) | payer BC, MEDICARE ==
[2022-06-04] MEDS ORDERED: Morphine 2 MG/ML VIAL ONE ×2 (13:10→16:16)
[2022-06-04 13:58] LABS: Bilirubin Neg (Negative); Blood, Urine Negative (Negative); Clarity Clear (Clear); Glucose, Urine (Dipstick) Normal (Negative); Ketone, Urine Negative (Negative); Leukocyte 25 (Negative); Nitrite Negative (Negative); Protein, Urine (Dipstick) Negative (Neg-Trace); Urobilinogen Normal mg/dL (Less than 2)
[2022-06-04 14:11] LABS: RBC/HPF 0-3 HPF (0-3); WBC/HPF 0-3 HPF (0-3)
[2022-06-04 14:12] LABS: Bacteria/HPF None Seen HPF (None Seen)
[2022-06-04 14:47] LABS: #Eosinphils 0.1 10x3/uL (0.0-0.5); #Monocytes 0.4 10x3/uL (0.0-1.1); #Neutrophils 3.9 10x3/uL (1.5-8.4); %Basophils 0.2 % (0.0-2.0); %Lymphocytes 16.9 % (18.0-47.0); %Monocytes 7.5 % (0.0-10.0); Hemoglobin 9.2 g/dL (12.0-15.5); Mean Corpuscular HGB CONC 30.9 g/dL (32.0-36.0); Mean Corpuscular Hemoglobin 27.4 pg (27.0-33.0); Mean Corpuscular Volume 88.7 fl (81.6-98.3); Mean Platelet Volume 9.3 fl (7.4-10.4); Platelet Count 138 10x3/uL (150-450); RBC Distribution Width 16.8 % (11.5-14.5); Red Blood Cell (RBC) Count 3.36 10x6/uL (3.90-5.03); White Blood Cell (WBC) Count 5.2 10x3/uL (3.5-10.5)
[2022-06-04 15:06] LABS: ALT (SGPT) 9 U/L (8-55); AST (SGOT) 17 U/L (5-34); Albumin 4.1 g/dL (3.4-4.8); Alkaline Phosphatase 101 U/L (40-110); Anion Gap 16 mmol/L (10-20); BUN (Urea Nitrogen) 28 mg/dL (9.8-20.1); Bilirubin, Total 0.5 mg/dL (0.2-1.2); CK (CPK) 94 U/L (29-168); Calc. Creatinine Clearance 0 mL/min (70-130); Calcium 9.8 mg/dL (7.8-10.44); Carbon Dioxide 21 mmol/L (23-31); Chloride 102 mmol/L (98-107); Estimated GFR 35; Globulin 2.4 g/dL (2.4-3.5); Glucose 105 mg/dL (80-115); Protein, Total 6.5 g/dL (5.8-8.1); Sodium 134 mmol/L (136-145)
== END 2022-06-04 16:21 | disposition home or self-care (01) ==
LOC: CSHERS 12:21
DX: S06.9X9A Unspecified intracranial injury with loss of consciousness of unspecified duration, initial encounter (principal); S00.83XA Contusion of other part of head, initial encounter; I50.9 Heart failure, unspecified; Z79.899 Other long term (current) drug therapy; W19.XXXA Unspecified fall, initial encounter
CPT/HCPCS: 70450; 70486; 71045; 72170; 80053; 82550; 84484; 85025; 93005; 96372; 99284; J2270; 81003; 81015

== ENCOUNTER 2022-12-17 18:16 | Inpatient (IN) | payer BC, MEDICARE ==
[~2022-12-17 18:16] MED LIST: Iopamidol 370 76% 100 ML VIAL ONE
[2022-12-17 19:23] LABS: #Monocytes 1.1 10x3/uL (0.0-1.1); #Neutrophils 12.6 10x3/uL (1.5-8.4); %Basophils 0.2 % (0.0-2.0); %Lymphocytes 8.6 % (18.0-47.0); %Monocytes 7.1 % (0.0-10.0); %Neutrophils 83.7 % (40.0-75.0); Hemoglobin 11.7 g/dL (12.0-15.5); Mean Corpuscular HGB CONC 30.7 g/dL (32.0-36.0); Mean Corpuscular Hemoglobin 25.7 pg (27.0-33.0); Mean Corpuscular Volume 83.7 fl (81.6-98.3); Mean Platelet Volume 9.3 fl (7.4-10.4); Platelet Count 288 10x3/uL (150-450); RBC Distribution Width 15.5 % (11.5-14.5); Red Blood Cell (RBC) Count 4.55 10x6/uL (3.90-5.03)
[2022-12-17 19:35] LABS: ALT (SGPT) 11 U/L (8-55); AST (SGOT) 21 U/L (5-34); Albumin 4.9 g/dL (3.4-4.8); Alkaline Phosphatase 131 U/L (40-110); Anion Gap 20 mmol/L (10-20); BUN (Urea Nitrogen) 24 mg/dL (9.8-20.1); Bilirubin, Total 0.5 mg/dL (0.2-1.2); Calc. Creatinine Clearance 0 mL/min (70-130); Calcium 11.3 mg/dL (7.8-10.44); Carbon Dioxide 21 mmol/L (23-31); Chloride 102 mmol/L (98-107); Estimated GFR 44; Globulin 3.6 g/dL (2.4-3.5); Glucose 158 mg/dL (80-115); Potassium 3.8 mmol/L (3.5-5.1); Protein, Total 8.5 g/dL (5.8-8.1); Sodium 139 mmol/L (136-145)
[2022-12-17 19:58] LABS: CKMB 1.6 ng/mL (0-6.6)
[2022-12-17 20:00] LABS: SARS-CoV-2 NAA Rapid Test Not Detected (NotDetected)
[2022-12-17] MEDS ORDERED: HYDROcodone/Acetaminophen 10/325 mg Tablet ONE (21:00)
[2022-12-17] MEDS ORDERED: Furosemide 40 MG/4 ML VIAL ONE (22:25)
[2022-12-18] MEDS ORDERED: Metoprolol Tartrate 5 MG/5 ML VIAL ONE (00:09)
[2022-12-18] MEDS ORDERED: Aspirin Chewable 81 MG TAB ONE (00:11)
[2022-12-18] MEDS ORDERED: Morphine 2 MG/ML VIAL ONE (00:25)
[2022-12-18] MEDS ORDERED: Calcium Carbonate 500 MG ChewTAB PO PRN (00:29)
[2022-12-18] MEDS ORDERED: Ondansetron PF 4 MG/2 ML Vial IVP PRN (00:29)
[2022-12-18] MEDS ORDERED: Senokot S 8.6-50 MG TAB PO PRN (00:29)
[2022-12-18] MEDS ORDERED: HYDROcodone/Acetaminophen 5/325 mg Tablet PO PRN (00:29)
[2022-12-18] MEDS ORDERED: Guaifenesin DM 100-10/5 ML UDCUP PO PRN (00:29)
[2022-12-18] MEDS ORDERED: Acetaminophen 325 MG TAB PO PRN (00:29)
[2022-12-18] MEDS ORDERED: Oxymetazoline HCl 0.05% ( 15 ML ) NASAL PRN (00:34)
[2022-12-18] MEDS ORDERED: ALPRAZolam 0.25 MG TAB PO PRN (00:35)
[2022-12-18] MEDS ORDERED: Ipratropium/Albuterol 3 ML NEB NEB PRN (00:39)
[2022-12-18 01:53] VITALS: BMI 29.7
[2022-12-18] MEDS ORDERED: methylPREDNISolone Sod Succ 40 MG VIAL IVP SCH (02:00)
[2022-12-18] MEDS ORDERED: Metoprolol Tartrate 25 MG TAB PO SCH (02:00)
[2022-12-18] MEDS ORDERED: Potassium Chloride 20 MEQ TAB PO SCH (02:00)
[2022-12-18] MEDS ORDERED: cefTRIAXone\\ROCEPHIN 1 GM in Sodium Chloride 0.9% 100 ML IVPB SCH (02:00)
[2022-12-18 02:06] LABS: Bilirubin Neg (Negative); Blood, Urine Negative (Negative); Clarity Clear (Clear); Glucose, Urine (Dipstick) Normal (Negative); Ketone, Urine Negative (Negative); Leukocyte 25 (Negative); Nitrite Negative (Negative); Protein, Urine (Dipstick) 100 mg/dl (Neg-Trace); Specific Gravity, Urine 1.005 (1.005-1.030); Urobilinogen Normal mg/dL (Less than 2)
[2022-12-18 02:17] LABS: Bacteria/HPF Rare-Few HPF (None Seen); RBC/HPF 0-3 HPF (0-3); Squamous Epithelial 0-3 HPF (0-3)
[2022-12-18 06:00] LABS: Magnesium 1.6 mg/dL (1.6-2.6)
[2022-12-18 06:26] LABS: #Monocytes 0.3 10x3/uL (0.0-1.1); #Neutrophils 12.3 10x3/uL (1.5-8.4); %Basophils 0.2 % (0.0-2.0); %Lymphocytes 6.5 % (18.0-47.0); %Monocytes 2.3 % (0.0-10.0); %Neutrophils 90.6 % (40.0-75.0); Hemoglobin 10.9 g/dL (12.0-15.5); Mean Corpuscular Hemoglobin 25.9 pg (27.0-33.0); Mean Corpuscular Volume 83.6 fl (81.6-98.3); Mean Platelet Volume 9.3 fl (7.4-10.4); Platelet Count 240 10x3/uL (150-450); RBC Distribution Width 15.5 % (11.5-14.5); Red Blood Cell (RBC) Count 4.21 10x6/uL (3.90-5.03); White Blood Cell (WBC) Count 13.6 10x3/uL (3.5-10.5)
[2022-12-18] MEDS ORDERED: Magnesium 2 GM/50 ML(in water) 2 GM in Premix Bag 1 BAG IVPB SCH (06:30)
[2022-12-18 06:47] LABS: CKMB 1.7 ng/mL (0-6.6)
[2022-12-18] MEDS: Ipratropium Bromide 2.5 ml Neb NEB SCH ×3 (08:10→21:47)
[2022-12-18] MEDS: Mometasone/Formoterol 60 PUFF AER INH SCH ×2 (08:15→21:05)
[2022-12-18] MEDS: Furosemide 40 MG TAB PO SCH (08:44)
[2022-12-18] MEDS: CO Q-10 CAPSULE 50 MG PO SCH (08:44)
[2022-12-18] MEDS: Fish Oil 1,000 MG CAP PO SCH (08:44)
[2022-12-18] MEDS: Ivabradine 5 MG TAB PO SCH ×2 (08:44→21:09)
[2022-12-18] MEDS: Amoxicillin/Potassium Clav 875 MG TAB PO SCH ×2 (08:44→21:10)
[2022-12-18] MEDS: Carvedilol 25 MG TAB PO SCH ×2 (08:45→15:43)
[2022-12-18] MEDS: Magnesium Oxide 250 MG TAB PO SCH (08:45)
[2022-12-18] MEDS: Cholecalciferol 1,000 UNITS (25 MCG) TAB PO SCH (08:45)
[2022-12-18] MEDS: Multivitamin w/Zinc Stress 1 TAB PO SCH (08:46)
[2022-12-18] MEDS: predniSONE 20 MG TAB PO SCH ×2 (08:46→21:09)
[2022-12-18] MEDS: Gabapentin 100 MG CAP PO SCH ×3 (08:47→21:10)
[2022-12-18] MEDS: Aspirin 81 mg Enteric Coated Tablet PO SCH (08:48)
[2022-12-18] MEDS: Ferrous Sulfate 325 MG TAB PO SCH (08:48)
[2022-12-18] MEDS: Morphine 2 MG/ML VIAL SLOW IVP PRN ×4 (08:49→22:22)
[2022-12-18] MEDS ORDERED: Spironolactone 25 MG TAB PO SCH (09:00)
[2022-12-18] MEDS ORDERED: Sertraline 25 MG TAB PO SCH (21:00)
[2022-12-18] MEDS ORDERED: Atorvastatin Calcium 40 MG TAB PO SCH (21:00)
[2022-12-18] MEDS ORDERED: traZODone HCl 50 MG TAB PO SCH (21:00)
[2022-12-19] MEDS: Morphine 2 MG/ML VIAL SLOW IVP PRN ×2 (02:27→09:43)
[2022-12-19] MEDS: Ipratropium Bromide 2.5 ml Neb NEB SCH ×2 (02:40→13:15)
[2022-12-19] MEDS: Carvedilol 25 MG TAB PO SCH (09:40)
[2022-12-19] MEDS: CO Q-10 CAPSULE 50 MG PO SCH (09:40)
[2022-12-19] MEDS: Gabapentin 100 MG CAP PO SCH ×2 (09:40→14:39)
[2022-12-19] MEDS: Furosemide 40 MG TAB PO SCH (09:40)
[2022-12-19] MEDS: Fish Oil 1,000 MG CAP PO SCH (09:41)
[2022-12-19] MEDS: predniSONE 20 MG TAB PO SCH (09:42)
[2022-12-19] MEDS: Cholecalciferol 1,000 UNITS (25 MCG) TAB PO SCH (09:42)
[2022-12-19] MEDS: Ferrous Sulfate 325 MG TAB PO SCH (09:42)
[2022-12-19] MEDS: Multivitamin w/Zinc Stress 1 TAB PO SCH (09:42)
[2022-12-19] MEDS: Amoxicillin/Potassium Clav 875 MG TAB PO SCH (09:42)
[2022-12-19] MEDS: Aspirin 81 mg Enteric Coated Tablet PO SCH (09:42)
[2022-12-19] MEDS: Ivabradine 5 MG TAB PO SCH (09:42)
[2022-12-19] MEDS: Magnesium Oxide 250 MG TAB PO SCH (09:43)
[2022-12-19] MEDS: Mometasone/Formoterol 60 PUFF AER INH SCH (13:15)
[2022-12-19 16:37] VITALS: BP 151/89; TEMP 98.6
== END 2022-12-19 16:00 | disposition home or self-care (01) | DRG 309 ==
LOC: CSHERS 18:16 → CSHTELE 12-18 01:44 → OBSVTOIN 12-19 15:44
PROVIDERS: ADMIT Student in an Organized Health Care Education/Training Program; ATTEND Nurse Practitioner Family
DX: I47.1 Supraventricular tachycardia (principal); I50.22 Chronic systolic (congestive) heart failure; J44.9 Chronic obstructive pulmonary disease, unspecified; E78.5 Hyperlipidemia, unspecified; I25.10 Atherosclerotic heart disease of native coronary artery without angina pectoris; I16.0 Hypertensive urgency; D64.9 Anemia, unspecified; H66.91 Otitis media, unspecified, right ear; I11.0 Hypertensive heart disease with heart failure; M19.90 Unspecified osteoarthritis, unspecified site; F32.A Depression, unspecified; Z20.822 Contact with and (suspected) exposure to COVID-19; R77.8 Other specified abnormalities of plasma proteins; Z95.810 Presence of automatic (implantable) cardiac defibrillator; Z95.5 Presence of coronary angioplasty implant and graft; Z88.8 Allergy status to other drugs, medicaments and biological substances; Z79.899 Other long term (current) drug therapy; Z90.49 Acquired absence of other specified parts of digestive tract; Z90.710 Acquired absence of both cervix and uterus; Z98.890 Other specified postprocedural states; Z87.891 Personal history of nicotine dependence; I25.2 Old myocardial infarction; Z79.01 Long term (current) use of anticoagulants; Z79.82 Long term (current) use of aspirin
CPT/HCPCS: 36415; 71045; 71275; 80053; 81001; 82553; 83735; 83880; 84443; 84484; 85025; 85379; 93005; 93306; 94640; 94760; 96372; 96375; 96376; G0378; J0696; J1650; J1940; J2272; J2920; J3475; J3490; J7512; Q9967

== ENCOUNTER 2022-12-20 13:09 | Emergency (ER) | payer MEDICARE ==
[2022-12-20 13:51] LABS: #Monocytes 0.7 10x3/uL (0.0-1.1); #Neutrophils 7.4 10x3/uL (1.5-8.4); %Basophils 0.1 % (0.0-2.0); %Eosinophils 0.1 % (0.0-6.0); %Monocytes 7.5 % (0.0-10.0); %Neutrophils 75.5 % (40.0-75.0); Hemoglobin 8.8 g/dL (12.0-15.5); Mean Corpuscular HGB CONC 30.9 g/dL (32.0-36.0); Mean Corpuscular Volume 84.1 fl (81.6-98.3); Mean Platelet Volume 9.7 fl (7.4-10.4); Platelet Count 166 10x3/uL (150-450); RBC Distribution Width 15.5 % (11.5-14.5); Red Blood Cell (RBC) Count 3.39 10x6/uL (3.90-5.03); White Blood Cell (WBC) Count 9.8 10x3/uL (3.5-10.5)
[2022-12-20 14:06] LABS: ALT (SGPT) 21 U/L (8-55); AST (SGOT) 28 U/L (5-34); Albumin 3.8 g/dL (3.4-4.8); Alkaline Phosphatase 86 U/L (40-110); Anion Gap 12 mmol/L (10-20); BUN (Urea Nitrogen) 61 mg/dL (9.8-20.1); Bilirubin, Total 0.2 mg/dL (0.2-1.2); Calc. Creatinine Clearance 0 mL/min (70-130); Calcium 8.9 mg/dL (7.8-10.44); Carbon Dioxide 21 mmol/L (23-31); Chloride 103 mmol/L (98-107); Estimated GFR 27; Globulin 2.3 g/dL (2.4-3.5); Glucose 133 mg/dL (80-115); Protein, Total 6.1 g/dL (5.8-8.1); Sodium 132 mmol/L (136-145)
== END 2022-12-20 16:43 | disposition home or self-care (01) ==
LOC: CSHERS 13:09
DX: I95.1 Orthostatic hypotension (principal); E86.0 Dehydration; J44.9 Chronic obstructive pulmonary disease, unspecified; I50.9 Heart failure, unspecified
CPT/HCPCS: 71045; 80053; 85025; 93005; 96360

== ENCOUNTER 2023-02-12 14:24 | Emergency (ER) | payer BC, MEDICARE ==
[2023-02-12] MEDS ORDERED: HYDROcodone/Acetaminophen 10/325 mg Tablet ONE (15:27)
[2023-02-12 15:33] LABS: #Monocytes 0.3 10x3/uL (0.0-1.1); #Neutrophils 6.5 10x3/uL (1.5-8.4); %Basophils 0.3 % (0.0-2.0); %Lymphocytes 10.9 % (18.0-47.0); %Monocytes 3.6 % (0.0-10.0); %Neutrophils 84.9 % (40.0-75.0); Hemoglobin 11.3 g/dL (12.0-15.5); Mean Corpuscular HGB CONC 31.2 g/dL (32.0-36.0); Mean Corpuscular Volume 83.2 fl (81.6-98.3); Mean Platelet Volume 8.9 fl (7.4-10.4); Platelet Count 176 10x3/uL (150-450); RBC Distribution Width 17.6 % (11.5-14.5); Red Blood Cell (RBC) Count 4.35 10x6/uL (3.90-5.03); White Blood Cell (WBC) Count 7.7 10x3/uL (3.5-10.5)
[2023-02-12 15:47] LABS: ALT (SGPT) 11 U/L (8-55); AST (SGOT) 25 U/L (5-34); Albumin 4.9 g/dL (3.4-4.8); Alkaline Phosphatase 117 U/L (40-110); Anion Gap 20 mmol/L (10-20); BUN (Urea Nitrogen) 33 mg/dL (9.8-20.1); Bilirubin, Total 0.4 mg/dL (0.2-1.2); Calc. Creatinine Clearance 0 mL/min (70-130); Carbon Dioxide 21 mmol/L (23-31); Chloride 99 mmol/L (98-107); Estimated GFR 45; Globulin 3.2 g/dL (2.4-3.5); Glucose 129 mg/dL (80-115); Potassium 3.8 mmol/L (3.5-5.1); Protein, Total 8.1 g/dL (5.8-8.1); Sodium 136 mmol/L (136-145)
[2023-02-12] MEDS ORDERED: Metoclopramide HCl 10 MG/2 ML VIAL ONE (17:10)
[2023-02-12] MEDS ORDERED: NIFEdipine XL 30 MG TAB ONE (17:11)
[2023-02-12] MEDS ORDERED: Carvedilol 25 MG TAB ONE (17:12)
[2023-02-12] MEDS ORDERED: methylPREDNISolone Sod Succ/PF 125 MG/2 ML VIAL ONE (18:07)
== END 2023-02-12 18:40 | disposition home or self-care (01) ==
LOC: CSHERS 14:24
DX: R51.9 Headache, unspecified (principal); I11.0 Hypertensive heart disease with heart failure; I50.9 Heart failure, unspecified; E78.5 Hyperlipidemia, unspecified; J44.9 Chronic obstructive pulmonary disease, unspecified; Z79.82 Long term (current) use of aspirin; Z79.899 Other long term (current) drug therapy
CPT/HCPCS: 70450; 80053; 85025; 93005; 96374; 96375; J2765; J2930

== ENCOUNTER 2023-07-19 09:22 | Inpatient (IN) | payer MEDICARE, BC ==
[2023-07-19 10:23] LABS: #Monocytes 0.6 10x3/uL (0.0-1.1); #Neutrophils 7.8 10x3/uL (1.5-8.4); %Basophils 0.2 % (0.0-2.0); %Eosinophils 0.2 % (0.0-6.0); %Lymphocytes 17.2 % (18.0-47.0); %Monocytes 5.9 % (0.0-10.0); Hematocrit 35.1 % (34.9-44.5); Hemoglobin 10.5 g/dL (12.0-15.5); Mean Corpuscular HGB CONC 29.9 g/dL (32.0-36.0); Mean Corpuscular Hemoglobin 24.4 pg (27.0-33.0); Mean Corpuscular Volume 81.6 fl (81.6-98.3); Mean Platelet Volume 9.1 fl (7.4-10.4); Platelet Count 199 10x3/uL (150-450); RBC Distribution Width 15.8 % (11.5-14.5); White Blood Cell (WBC) Count 10.2 10x3/uL (3.5-10.5)
[2023-07-19] MEDS ORDERED: Morphine 2 MG/ML VIAL ONE (10:38)
[2023-07-19 10:57] LABS: ALT (SGPT) 22 U/L (8-55); AST (SGOT) 33 U/L (5-34); Alkaline Phosphatase 148 U/L (40-110); Anion Gap 15 mmol/L (10-20); BUN (Urea Nitrogen) 32 mg/dL (9.8-20.1); Bilirubin, Total 0.6 mg/dL (0.2-1.2); Calc. Creatinine Clearance 0 mL/min (70-130); Calcium 9.6 mg/dL (7.8-10.44); Carbon Dioxide 24 mmol/L (23-31); Chloride 98 mmol/L (98-107); Estimated GFR 44; Globulin 2.7 g/dL (2.4-3.5); Glucose 117 mg/dL (80-115); Magnesium 1.7 mg/dL (1.6-2.6); Potassium 3.6 mmol/L (3.5-5.1); Protein, Total 6.7 g/dL (5.8-8.1); Sodium 133 mmol/L (136-145)
[2023-07-19 11:06] LABS: SARS-CoV-2 NAA Rapid Test DETECTED (NotDetected)
[2023-07-19] MEDS ORDERED: Ondansetron ODT 4 MG TAB PO PRN (12:08)
[2023-07-19] MEDS ORDERED: Acetaminophen 325 MG TAB PO PRN (12:08)
[2023-07-19] MEDS ORDERED: Ondansetron PF 4 MG/2 ML Vial IVP PRN (12:08)
[2023-07-19] MEDS ORDERED: Ondansetron PF 4 MG/2 ML Vial ONE (12:23)
[2023-07-19] MEDS ORDERED: Aspirin 325 mg Enteric Coated Tablet ONE (12:23)
[2023-07-19] MEDS ORDERED: REMDESIVIR 200 MG in Sodium Chloride 0.9% 250 ML 210 ML IV SCH (14:30)
[2023-07-19] MEDS ORDERED: Albuterol 200 PUFF (6.7GM INHALER) INH PRN (15:43)
[2023-07-19] MEDS: Morphine 2 MG/ML VIAL SLOW IVP PRN (16:24)
[2023-07-19] MEDS: Carvedilol 25 MG TAB PO SCH (16:24)
[2023-07-19 16:56] LABS: Troponin I 0.157 ng/mL (< 0.028)
[2023-07-19] MEDS: Ivabradine 5 MG TAB PO SCH (20:20)
[2023-07-19] MEDS: traMADol HCl 50 MG TAB PO SCH (20:21)
[2023-07-19] MEDS: Gabapentin 300 MG CAP PO SCH (20:22)
[2023-07-19 22:36] VITALS: BMI 27.6
[2023-07-20] MEDS: Levothyroxine Sodium 88 MCG TAB PO SCH (04:42)
[2023-07-20] MEDS: Morphine 2 MG/ML VIAL SLOW IVP PRN ×3 (04:42→20:40)
[2023-07-20 06:51] LABS: #Eosinphils 0.1 10x3/uL (0.0-0.5); #Monocytes 0.5 10x3/uL (0.0-1.1); #Neutrophils 4.9 10x3/uL (1.5-8.4); %Basophils 0.3 % (0.0-2.0); %Eosinophils 1.1 % (0.0-6.0); %Lymphocytes 23.4 % (18.0-47.0); %Monocytes 6.6 % (0.0-10.0); Hematocrit 33.4 % (34.9-44.5); Mean Corpuscular HGB CONC 29.9 g/dL (32.0-36.0); Mean Corpuscular Hemoglobin 24.4 pg (27.0-33.0); Mean Corpuscular Volume 81.7 fl (81.6-98.3); Mean Platelet Volume 9.6 fl (7.4-10.4); Platelet Count 159 10x3/uL (150-450); RBC Distribution Width 15.7 % (11.5-14.5); Red Blood Cell (RBC) Count 4.09 10x6/uL (3.90-5.03); White Blood Cell (WBC) Count 7.2 10x3/uL (3.5-10.5)
[2023-07-20 07:10] LABS: Anion Gap 16 mmol/L (10-20); BUN (Urea Nitrogen) 41 mg/dL (9.8-20.1); Calc. Creatinine Clearance 29 mL/min (70-130); Calcium 9.2 mg/dL (7.8-10.44); Carbon Dioxide 24 mmol/L (23-31); Chloride 98 mmol/L (98-107); Estimated GFR 31; Glucose 99 mg/dL (80-115); Potassium 3.7 mmol/L (3.5-5.1); Sodium 134 mmol/L (136-145)
[2023-07-20 07:12] LABS: ALT (SGPT) 56 U/L (8-55); AST (SGOT) 92 U/L (5-34); Albumin 3.7 g/dL (3.4-4.8); Alkaline Phosphatase 164 U/L (40-110); Bilirubin, Direct 0.2 mg/dL (0.1-0.3); Bilirubin, Total 0.4 mg/dL (0.2-1.2); Protein, Total 6.2 g/dL (5.8-8.1)
[2023-07-20] MEDS ORDERED: Aspirin 81 mg Enteric Coated Tablet PO SCH (09:00)
[2023-07-20] MEDS: Ferrous Sulfate 325 MG TAB PO SCH (09:18)
[2023-07-20] MEDS: NIFEdipine XL 60 MG TAB PO SCH (09:19)
[2023-07-20] MEDS: Ivabradine 5 MG TAB PO SCH ×2 (09:20→20:29)
[2023-07-20] MEDS: Spironolactone 25 MG TAB PO SCH (09:20)
[2023-07-20] MEDS: Carvedilol 25 MG TAB PO SCH ×2 (09:20→14:46)
[2023-07-20] MEDS: Allopurinol 300 MG TAB PO SCH (09:21)
[2023-07-20] MEDS: Clopidogrel Bisulfate 75 MG TAB PO SCH (09:21)
[2023-07-20] MEDS: Ascorbic Acid 500 mg Chewable Tablet PO SCH (09:21)
[2023-07-20] MEDS: Gabapentin 300 MG CAP PO SCH ×3 (09:22→20:29)
[2023-07-20] MEDS: traMADol HCl 50 MG TAB PO SCH ×3 (09:22→20:50)
[2023-07-20] MEDS: CO Q-10 CAPSULE 50 MG PO SCH (09:25)
[2023-07-20] MEDS ORDERED: Morphine 2 MG/ML VIAL SLOW IVP SCH (14:00)
[2023-07-20] MEDS: REMDESIVIR 100 MG in Sodium Chloride 0.9% 250 ML 230 ML IV SCH (15:25)
[2023-07-20] MEDS ORDERED: Rosuvastatin 10 MG TAB PO SCH (21:00)
[2023-07-21] MEDS: Morphine 2 MG/ML VIAL SLOW IVP PRN ×3 (03:29→15:56)
[2023-07-21 04:03] LABS: #Eosinphils 0.1 10x3/uL (0.0-0.5); #Monocytes 0.8 10x3/uL (0.0-1.1); #Neutrophils 4.7 10x3/uL (1.5-8.4); %Basophils 0.3 % (0.0-2.0); %Eosinophils 1.5 % (0.0-6.0); %Lymphocytes 23.3 % (18.0-47.0); %Monocytes 10.4 % (0.0-10.0); Hematocrit 31.7 % (34.9-44.5); Hemoglobin 9.4 g/dL (12.0-15.5); Mean Corpuscular HGB CONC 29.7 g/dL (32.0-36.0); Mean Corpuscular Hemoglobin 24.5 pg (27.0-33.0); Mean Corpuscular Volume 82.6 fl (81.6-98.3); Mean Platelet Volume 10.3 fl (7.4-10.4); Platelet Count 152 10x3/uL (150-450); RBC Distribution Width 15.8 % (11.5-14.5); Red Blood Cell (RBC) Count 3.84 10x6/uL (3.90-5.03); White Blood Cell (WBC) Count 7.3 10x3/uL (3.5-10.5)
[2023-07-21 04:30] LABS: Anion Gap 16 mmol/L (10-20); BUN (Urea Nitrogen) 56 mg/dL (9.8-20.1); Calc. Creatinine Clearance 26 mL/min (70-130); Carbon Dioxide 23 mmol/L (23-31); Chloride 99 mmol/L (98-107); Estimated GFR 27; Glucose 109 mg/dL (80-115); Potassium 3.5 mmol/L (3.5-5.1); Sodium 134 mmol/L (136-145)
[2023-07-21 05:05] LABS: ALT (SGPT) 46 U/L (8-55); AST (SGOT) 47 U/L (5-34); Albumin 3.6 g/dL (3.4-4.8); Alkaline Phosphatase 170 U/L (40-110); Bilirubin, Direct 0.1 mg/dL (0.1-0.3); Bilirubin, Total 0.2 mg/dL (0.2-1.2)
[2023-07-21] MEDS: Levothyroxine Sodium 88 MCG TAB PO SCH (06:01)
[2023-07-21] MEDS: traMADol HCl 50 MG TAB PO SCH ×2 (10:21→15:55)
[2023-07-21] MEDS: Ascorbic Acid 500 mg Chewable Tablet PO SCH (10:22)
[2023-07-21] MEDS: NIFEdipine XL 60 MG TAB PO SCH (10:23)
[2023-07-21] MEDS: Gabapentin 300 MG CAP PO SCH ×2 (10:23→15:55)
[2023-07-21] MEDS: Clopidogrel Bisulfate 75 MG TAB PO SCH (10:23)
[2023-07-21] MEDS: CO Q-10 CAPSULE 50 MG PO SCH (10:24)
[2023-07-21] MEDS: Spironolactone 25 MG TAB PO SCH (10:24)
[2023-07-21] MEDS: Ivabradine 5 MG TAB PO SCH (10:24)
[2023-07-21] MEDS: Allopurinol 300 MG TAB PO SCH (10:24)
[2023-07-21] MEDS: Ferrous Sulfate 325 MG TAB PO SCH (10:28)
[2023-07-21] MEDS: Carvedilol 25 MG TAB PO SCH ×2 (10:28→15:55)
[2023-07-21] MEDS: REMDESIVIR 100 MG in Sodium Chloride 0.9% 250 ML 230 ML IV SCH (15:58)
[2023-07-21 18:04] VITALS: BP 104/68; TEMP 98.9
== END 2023-07-21 19:35 | disposition home or self-care (01) | DRG 178 ==
LOC: CSHERS 09:22 → CSHTELE 12:08 → OBSVTOIN 07-20 11:05
PROVIDERS: ADMIT Internal Medicine; ATTEND Internal Medicine
PROC: XW033E5 Introduction of Remdesivir Anti-infective into Peripheral Vein, Percutaneous Approach, New Technology Group 5 (ICD-10-PCS; principal; 2023-07-19)
DX: U07.1 COVID-19 (principal); I13.0 Hypertensive heart and chronic kidney disease with heart failure and stage 1 through stage 4 chronic kidney disease, or unspecified chronic kidney disease; I50.42 Chronic combined systolic (congestive) and diastolic (congestive) heart failure; I25.10 Atherosclerotic heart disease of native coronary artery without angina pectoris; N18.9 Chronic kidney disease, unspecified; J44.9 Chronic obstructive pulmonary disease, unspecified; E03.9 Hypothyroidism, unspecified; F10.90 Alcohol use, unspecified, uncomplicated; Z96.651 Presence of right artificial knee joint; Z95.810 Presence of automatic (implantable) cardiac defibrillator; Z98.890 Other specified postprocedural states; Z88.8 Allergy status to other drugs, medicaments and biological substances; Z79.899 Other long term (current) drug therapy; Z79.82 Long term (current) use of aspirin; Z79.890 Hormone replacement therapy; Z90.710 Acquired absence of both cervix and uterus; Z87.891 Personal history of nicotine dependence
CPT/HCPCS: 36415; 71045; 80048; 80053; 80076; 83735; 83880; 84443; 84484; 85025; 93005; 94760; 96374; 96375; J0248; J2272; J2405; J7050; Q0162

== ENCOUNTER 2023-11-12 19:18 | Inpatient (IN) | payer MEDICARE, BC ==
[2023-11-12] MEDS ORDERED: dilTIAZem 25 MG/5 ML VIAL ONE (19:55)
[2023-11-12 20:33] VITALS: BMI 29.9
[2023-11-12] MEDS ORDERED: Ondansetron PF 4 MG/2 ML Vial IVP PRN (20:33)
[2023-11-12] MEDS ORDERED: Guaifenesin DM 100-10/5 ML UDCUP PO PRN (20:33)
[2023-11-12] MEDS ORDERED: Senokot S 8.6-50 MG TAB PO PRN (20:33)
[2023-11-12] MEDS ORDERED: Acetaminophen 325 MG TAB PO PRN (20:33)
[2023-11-12] MEDS ORDERED: Metoprolol Tartrate 5 MG (5 mL) VIAL IVP PRN (20:39)
[2023-11-12] MEDS ORDERED: Furosemide 40 MG (4 mL) VIAL SLOW IVP SCH (20:45)
[2023-11-12] MEDS ORDERED: Ipratropium/Albuterol 3 ML NEB NEB PRN (20:45)
[2023-11-12] MEDS ORDERED: dilTIAZem 125 MG in Sodium Chloride 0.9% 100 ML IVPB SCH (20:45)
[2023-11-12] MEDS ORDERED: Digoxin 0.5 MG/2 ML AMP SLOW IVP SCH (20:45)
[2023-11-12] MEDS ORDERED: Potassium Chloride 20 MEQ TAB PO SCH (20:45)
[2023-11-12] MEDS ORDERED: Metoprolol Tartrate 25 MG TAB PO SCH (20:45)
[2023-11-12] MEDS: Colestipol 1 GM TAB PO SCH (21:07)
[2023-11-12] MEDS: Enoxaparin 80 MG (0.8 mL) SYRINGE SC SCH (21:07)
[2023-11-12] MEDS: Ivabradine 5 MG TAB PO SCH (21:07)
[2023-11-12] MEDS: Gabapentin 300 MG CAP PO SCH (21:08)
[2023-11-12 21:14] LABS: Anion Gap 15 mmol/L (10-20); BUN (Urea Nitrogen) 36 mg/dL (9.8-20.1); Calc. Creatinine Clearance 39 mL/min (70-130); Calcium 8.7 mg/dL (7.8-10.44); Carbon Dioxide 18 mmol/L (23-31); Chloride 107 mmol/L (98-107); Estimated GFR 39; Glucose 99 mg/dL (80-115); Magnesium 1.8 mg/dL (1.6-2.6); Sodium 136 mmol/L (136-145)
[2023-11-12] MEDS ORDERED: methylPREDNISolone Sod Succ/PF 125 MG/2 ML VIAL IVP SCH (21:15)
[2023-11-12] MEDS ORDERED: Magnesium Sulfate/D5W 1 GM in Premix 1 BAG IVPB SCH (21:45)
[2023-11-12] MEDS ORDERED: Magnesium Sulfate/D5W 1 GM/100 ML BAG IVPB SCH (21:45)
[2023-11-12 23:31] LABS: Bilirubin Neg (Negative); Blood, Urine Negative (Negative); Clarity Slightly Cloudy (Clear); Glucose, Urine (Dipstick) Normal (Negative); Ketone, Urine Negative (Negative); Leukocyte 100 (Negative); Nitrite Negative (Negative); Protein, Urine (Dipstick) 30 mg/dl (Neg-Trace); Specific Gravity, Urine 1.015 (1.005-1.030); Urobilinogen Normal mg/dL (Less than 2)
[2023-11-12 23:37] LABS: Bacteria/HPF None Seen HPF (None Seen); RBC/HPF None Seen HPF (0-3); WBC/HPF 0-3 HPF (0-3)
[2023-11-13] MEDS: HYDROcodone/Acetaminophen 5/325 mg Tablet PO PRN ×2 (04:27→11:03)
[2023-11-13 05:08] LABS: #Monocytes 0.2 10x3/uL (0.0-1.1); #Neutrophils 10.5 10x3/uL (1.5-8.4); %Basophils 0.1 % (0.0-2.0); %Lymphocytes 2.7 % (18.0-47.0); %Monocytes 1.4 % (0.0-10.0); %Neutrophils 94.8 % (40.0-75.0); Hematocrit 29.7 % (34.9-44.5); Hemoglobin 8.7 g/dL (12.0-15.5); Mean Corpuscular HGB CONC 29.3 g/dL (32.0-36.0); Mean Corpuscular Hemoglobin 22.5 pg (27.0-33.0); Mean Corpuscular Volume 76.9 fl (81.6-98.3); Mean Platelet Volume 9.8 fl (7.4-10.4); Platelet Count 169 10x3/uL (150-450); RBC Distribution Width 19.3 % (11.5-14.5); Red Blood Cell (RBC) Count 3.86 10x6/uL (3.90-5.03); White Blood Cell (WBC) Count 11.1 10x3/uL (3.5-10.5)
[2023-11-13 05:17] LABS: Anion Gap 17 mmol/L (10-20); BUN (Urea Nitrogen) 33 mg/dL (9.8-20.1); Calc. Creatinine Clearance 43 mL/min (70-130); Calcium 9.2 mg/dL (7.8-10.44); Carbon Dioxide 18 mmol/L (23-31); Chloride 106 mmol/L (98-107); Estimated GFR 45; Glucose 144 mg/dL (80-115); Iron 14 ug/dL (50-170); Iron Binding Capacity, Total 334 mcg/dL (265-497); Potassium 4.6 mmol/L (3.5-5.1); Sodium 136 mmol/L (136-145)
[2023-11-13 05:24] LABS: Troponin I 0.128 ng/mL (< 0.028)
[2023-11-13] MEDS: Levothyroxine Sodium 88 MCG TAB PO SCH (06:14)
[2023-11-13] MEDS ORDERED: Morphine 2 MG/ML VIAL SLOW IVP SCH (06:30)
[2023-11-13] MEDS: Colestipol 1 GM TAB PO SCH ×2 (07:54→22:05)
[2023-11-13] MEDS: Furosemide 40 MG TAB PO SCH (07:54)
[2023-11-13] MEDS: Escitalopram Oxalate 10 mg Tablet PO SCH (07:55)
[2023-11-13] MEDS: Spironolactone 25 MG TAB PO SCH (07:55)
[2023-11-13] MEDS: Folic Acid/Vit B Comp W-C PO SCH (07:55)
[2023-11-13] MEDS: Gabapentin 300 MG CAP PO SCH ×3 (07:55→22:04)
[2023-11-13] MEDS: Carvedilol 25 MG TAB PO SCH ×2 (07:55→16:47)
[2023-11-13] MEDS: Ivabradine 5 MG TAB PO SCH ×2 (07:55→22:05)
[2023-11-13] MEDS: Aspirin 81 mg Enteric Coated Tablet PO SCH (07:55)
[2023-11-13] MEDS: Enoxaparin 80 MG (0.8 mL) SYRINGE SC SCH ×2 (07:56→22:05)
[2023-11-13] MEDS: Allopurinol 300 MG TAB PO SCH (07:56)
[2023-11-13] MEDS: Polyethylene Glycol 3350 17 GM Packet PO SCH (07:56)
[2023-11-13] MEDS: Rosuvastatin 10 MG TAB PO SCH (07:56)
[2023-11-13] MEDS ORDERED: Aspirin 81 mg Enteric Coated Tablet PO SCH (09:00)
[2023-11-13] MEDS ORDERED: FLU VACC QS2023(65UP)/MF59C/PF 60 MCG/0.5 ML SYRINGE IM ONE (09:00)
[2023-11-13] MEDS ORDERED: Digoxin 0.25 MG TAB PO SCH (09:00)
[2023-11-13] MEDS ORDERED: Morphine 4 MG/ML VIAL SLOW IVP SCH (13:00)
[2023-11-13] MEDS: Morphine 4 MG/ML VIAL SLOW IVP PRN ×2 (16:50→22:05)
[2023-11-13] MEDS ORDERED: Ferrous Sulfate 325 MG TAB PO SCH (17:45)
[2023-11-13] MEDS ORDERED: Ventolin HFA Inhaler 60 PUFF INHALER INH PRN (17:56)
[2023-11-14] MEDS: HYDROcodone/Acetaminophen 5/325 mg Tablet PO PRN ×4 (00:10→18:05)
[2023-11-14 03:56] LABS: #Monocytes 0.9 10x3/uL (0.0-1.1); #Neutrophils 15.3 10x3/uL (1.5-8.4); %Basophils 0.1 % (0.0-2.0); %Monocytes 5.4 % (0.0-10.0); %Neutrophils 89.7 % (40.0-75.0); Hematocrit 25.1 % (34.9-44.5); Hemoglobin 7.6 g/dL (12.0-15.5); Mean Corpuscular HGB CONC 30.3 g/dL (32.0-36.0); Mean Corpuscular Hemoglobin 23.3 pg (27.0-33.0); Mean Platelet Volume 9.8 fl (7.4-10.4); Platelet Count 184 10x3/uL (150-450); RBC Distribution Width 19.3 % (11.5-14.5); Red Blood Cell (RBC) Count 3.26 10x6/uL (3.90-5.03); White Blood Cell (WBC) Count 17.1 10x3/uL (3.5-10.5)
[2023-11-14 04:08] LABS: Anion Gap 15 mmol/L (10-20); BUN (Urea Nitrogen) 44 mg/dL (9.8-20.1); Calc. Creatinine Clearance 29 mL/min (70-130); Calcium 9.1 mg/dL (7.8-10.44); Carbon Dioxide 19 mmol/L (23-31); Chloride 100 mmol/L (98-107); Estimated GFR 27; Glucose 148 mg/dL (80-115); Potassium 4.5 mmol/L (3.5-5.1); Sodium 129 mmol/L (136-145)
[2023-11-14] MEDS: Levothyroxine Sodium 88 MCG TAB PO SCH (07:01)
[2023-11-14] MEDS ORDERED: Ivabradine 5 MG TAB PO SCH (09:00)
[2023-11-14] MEDS: Enoxaparin 80 MG (0.8 mL) SYRINGE SC SCH (09:33)
[2023-11-14] MEDS: Carvedilol 25 MG TAB PO SCH ×2 (09:33→18:05)
[2023-11-14] MEDS: Gabapentin 300 MG CAP PO SCH ×3 (09:33→20:39)
[2023-11-14] MEDS: Rosuvastatin 10 MG TAB PO SCH (09:33)
[2023-11-14] MEDS: Spironolactone 25 MG TAB PO SCH (09:33)
[2023-11-14] MEDS: Escitalopram Oxalate 10 mg Tablet PO SCH (09:34)
[2023-11-14] MEDS: Furosemide 40 MG TAB PO SCH (09:35)
[2023-11-14] MEDS: Amiodarone 200 MG TAB PO SCH ×2 (09:35→20:39)
[2023-11-14] MEDS: Ferrous Sulfate 325 MG TAB PO SCH (09:35)
[2023-11-14] MEDS: Polyethylene Glycol 3350 17 GM Packet PO SCH (09:38)
[2023-11-14] MEDS: Colestipol 1 GM TAB PO SCH ×2 (09:47→20:40)
[2023-11-14] MEDS: Allopurinol 300 MG TAB PO SCH (09:47)
[2023-11-14] MEDS: Morphine 4 MG/ML VIAL SLOW IVP PRN ×3 (09:48→20:40)
[2023-11-14] MEDS: Folic Acid/Vit B Comp W-C PO SCH (10:50)
[2023-11-15] MEDS: Morphine 4 MG/ML VIAL SLOW IVP PRN ×4 (00:31→20:35)
[2023-11-15 04:11] LABS: #Monocytes 0.8 10x3/uL (0.0-1.1); #Neutrophils 11.4 10x3/uL (1.5-8.4); %Basophils 0.1 % (0.0-2.0); %Eosinophils 0.1 % (0.0-6.0); %Lymphocytes 9.1 % (18.0-47.0); %Monocytes 5.8 % (0.0-10.0); %Neutrophils 84.1 % (40.0-75.0); Hematocrit 29.1 % (34.9-44.5); Hemoglobin 8.6 g/dL (12.0-15.5); Mean Corpuscular HGB CONC 29.6 g/dL (32.0-36.0); Mean Corpuscular Hemoglobin 22.9 pg (27.0-33.0); Mean Corpuscular Volume 77.4 fl (81.6-98.3); Mean Platelet Volume 9.3 fl (7.4-10.4); Platelet Count 199 10x3/uL (150-450); RBC Distribution Width 19.6 % (11.5-14.5); Red Blood Cell (RBC) Count 3.76 10x6/uL (3.90-5.03); White Blood Cell (WBC) Count 13.5 10x3/uL (3.5-10.5)
[2023-11-15 04:25] LABS: Anion Gap 13 mmol/L (10-20); BUN (Urea Nitrogen) 49 mg/dL (9.8-20.1); Calc. Creatinine Clearance 33 mL/min (70-130); Calcium 9.4 mg/dL (7.8-10.44); Carbon Dioxide 25 mmol/L (23-31); Chloride 95 mmol/L (98-107); Estimated GFR 32; Glucose 104 mg/dL (80-115); Potassium 4.4 mmol/L (3.5-5.1); Sodium 129 mmol/L (136-145)
[2023-11-15] MEDS: Levothyroxine Sodium 88 MCG TAB PO SCH (05:50)
[2023-11-15] MEDS: HYDROcodone/Acetaminophen 5/325 mg Tablet PO PRN ×2 (05:52→12:43)
[2023-11-15] MEDS: Aspirin 81 mg Enteric Coated Tablet PO SCH (08:55)
[2023-11-15] MEDS: Spironolactone 25 MG TAB PO SCH (08:55)
[2023-11-15] MEDS: Folic Acid/Vit B Comp W-C PO SCH (08:55)
[2023-11-15] MEDS: Rosuvastatin 10 MG TAB PO SCH (08:56)
[2023-11-15] MEDS: Gabapentin 300 MG CAP PO SCH ×3 (08:56→20:27)
[2023-11-15] MEDS: Ferrous Sulfate 325 MG TAB PO SCH (08:56)
[2023-11-15] MEDS: Escitalopram Oxalate 10 mg Tablet PO SCH (08:56)
[2023-11-15] MEDS: Amiodarone 200 MG TAB PO SCH ×2 (08:56→20:28)
[2023-11-15] MEDS: Carvedilol 25 MG TAB PO SCH ×2 (08:56→15:48)
[2023-11-15] MEDS: Colestipol 1 GM TAB PO SCH ×2 (08:56→20:28)
[2023-11-15] MEDS: Furosemide 40 MG TAB PO SCH (08:56)
[2023-11-15] MEDS: Allopurinol 300 MG TAB PO SCH (08:57)
[2023-11-15] MEDS: Polyethylene Glycol 3350 17 GM Packet PO SCH (08:58)
[2023-11-15] MEDS ORDERED: Enoxaparin 80 MG (0.8 mL) SYRINGE SC SCH (09:00)
[2023-11-15] MEDS: Calcium Carbonate 500 MG ChewTAB PO PRN (10:51)
[2023-11-15] MEDS: Apixaban 2.5 MG TAB PO SCH (20:27)
[2023-11-15 22:55] LABS: Bilirubin Neg (Negative); Blood, Urine 10 (Negative); Clarity Clear (Clear); Glucose, Urine (Dipstick) Normal (Negative); Ketone, Urine Negative (Negative); Leukocyte Negative (Negative); Nitrite Negative (Negative); Protein, Urine (Dipstick) 15 mg/dl (Neg-Trace); Specific Gravity, Urine 1.015 (1.005-1.030); Urobilinogen Normal mg/dL (Less than 2)
[2023-11-15 23:18] LABS: Bacteria/HPF None Seen HPF (None Seen); CAUTI Indications for Culture Dysuria,urgency,freq; RBC/HPF 0-3 HPF (0-3); Squamous Epithelial None Seen HPF (0-3); WBC/HPF None Seen HPF (0-3)
[2023-11-15 23:19] LABS: Urine Culture Reflex No No
[2023-11-16] MEDS: HYDROcodone/Acetaminophen 5/325 mg Tablet PO PRN ×3 (02:17→17:05)
[2023-11-16 04:22] LABS: #Eosinphils 0.1 10x3/uL (0.0-0.5); #Monocytes 0.6 10x3/uL (0.0-1.1); #Neutrophils 6.7 10x3/uL (1.5-8.4); %Eosinophils 0.6 % (0.0-6.0); %Monocytes 6.8 % (0.0-10.0); %Neutrophils 79.9 % (40.0-75.0); Hematocrit 27.5 % (34.9-44.5); Hemoglobin 8.3 g/dL (12.0-15.5); Mean Corpuscular HGB CONC 30.2 g/dL (32.0-36.0); Mean Corpuscular Hemoglobin 23.3 pg (27.0-33.0); Mean Corpuscular Volume 77.2 fl (81.6-98.3); Mean Platelet Volume 9.9 fl (7.4-10.4); Platelet Count 178 10x3/uL (150-450); RBC Distribution Width 19.3 % (11.5-14.5); Red Blood Cell (RBC) Count 3.56 10x6/uL (3.90-5.03); White Blood Cell (WBC) Count 8.4 10x3/uL (3.5-10.5)
[2023-11-16 05:15] LABS: Anion Gap 13 mmol/L (10-20); BUN (Urea Nitrogen) 52 mg/dL (9.8-20.1); Calc. Creatinine Clearance 37 mL/min (70-130); Calcium 9.5 mg/dL (7.8-10.44); Carbon Dioxide 25 mmol/L (23-31); Chloride 93 mmol/L (98-107); Estimated GFR 36; Glucose 99 mg/dL (80-115); Potassium 4.3 mmol/L (3.5-5.1); Sodium 127 mmol/L (136-145)
[2023-11-16] MEDS: Levothyroxine Sodium 88 MCG TAB PO SCH (06:02)
[2023-11-16] MEDS: Morphine 4 MG/ML VIAL SLOW IVP PRN ×2 (06:18→23:11)
[2023-11-16] MEDS: Spironolactone 25 MG TAB PO SCH (10:50)
[2023-11-16] MEDS: Amiodarone 200 MG TAB PO SCH ×2 (10:51→23:04)
[2023-11-16] MEDS: Gabapentin 300 MG CAP PO SCH ×3 (10:51→23:04)
[2023-11-16] MEDS: Carvedilol 25 MG TAB PO SCH ×2 (10:51→17:04)
[2023-11-16] MEDS: Rosuvastatin 10 MG TAB PO SCH (10:51)
[2023-11-16] MEDS: Folic Acid/Vit B Comp W-C PO SCH (10:52)
[2023-11-16] MEDS: Colestipol 1 GM TAB PO SCH ×2 (10:53→23:05)
[2023-11-16] MEDS: Ferrous Sulfate 325 MG TAB PO SCH (10:53)
[2023-11-16] MEDS: Apixaban 2.5 MG TAB PO SCH ×2 (10:53→23:05)
[2023-11-16] MEDS: Allopurinol 300 MG TAB PO SCH (10:54)
[2023-11-16] MEDS: Escitalopram Oxalate 10 mg Tablet PO SCH (10:55)
[2023-11-16] MEDS: Naloxegol 12.5 MG TAB PO SCH (10:55)
[2023-11-16] MEDS: Polyethylene Glycol 3350 17 GM Packet PO SCH (10:55)
[2023-11-16] MEDS: Sodium Chloride 1 GM TAB PO SCH ×3 (10:59→23:05)
[2023-11-17] MEDS: HYDROcodone/Acetaminophen 5/325 mg Tablet PO PRN ×4 (02:56→23:22)
[2023-11-17 04:59] LABS: #Eosinphils 0.1 10x3/uL (0.0-0.5); #Monocytes 0.5 10x3/uL (0.0-1.1); #Neutrophils 8.9 10x3/uL (1.5-8.4); %Basophils 0.1 % (0.0-2.0); %Eosinophils 0.6 % (0.0-6.0); %Monocytes 4.7 % (0.0-10.0); %Neutrophils 83.8 % (40.0-75.0); Hematocrit 28.5 % (34.9-44.5); Hemoglobin 8.2 g/dL (12.0-15.5); Mean Corpuscular HGB CONC 28.8 g/dL (32.0-36.0); Mean Corpuscular Hemoglobin 22.5 pg (27.0-33.0); Mean Corpuscular Volume 78.3 fl (81.6-98.3); Mean Platelet Volume 9.4 fl (7.4-10.4); Platelet Count 187 10x3/uL (150-450); RBC Distribution Width 19.5 % (11.5-14.5); Red Blood Cell (RBC) Count 3.64 10x6/uL (3.90-5.03); White Blood Cell (WBC) Count 10.6 10x3/uL (3.5-10.5)
[2023-11-17 05:19] LABS: Anion Gap 12 mmol/L (10-20); BUN (Urea Nitrogen) 46 mg/dL (9.8-20.1); Calc. Creatinine Clearance 41 mL/min (70-130); Carbon Dioxide 21 mmol/L (23-31); Chloride 99 mmol/L (98-107); Estimated GFR 41; Glucose 115 mg/dL (80-115); Potassium 4.4 mmol/L (3.5-5.1); Sodium 128 mmol/L (136-145)
[2023-11-17] MEDS: Levothyroxine Sodium 88 MCG TAB PO SCH (06:07)
[2023-11-17] MEDS: Morphine 4 MG/ML VIAL SLOW IVP PRN ×3 (06:08→20:41)
[2023-11-17] MEDS: Apixaban 2.5 MG TAB PO SCH ×2 (08:15→20:40)
[2023-11-17] MEDS: Folic Acid/Vit B Comp W-C PO SCH (10:30)
[2023-11-17] MEDS: Rosuvastatin 10 MG TAB PO SCH (10:31)
[2023-11-17] MEDS: Allopurinol 300 MG TAB PO SCH (10:31)
[2023-11-17] MEDS: Gabapentin 300 MG CAP PO SCH ×3 (10:32→20:40)
[2023-11-17] MEDS: Escitalopram Oxalate 10 mg Tablet PO SCH (10:33)
[2023-11-17] MEDS: Carvedilol 25 MG TAB PO SCH ×2 (10:34→16:41)
[2023-11-17] MEDS: Spironolactone 25 MG TAB PO SCH (10:34)
[2023-11-17] MEDS: Aspirin 81 mg Enteric Coated Tablet PO SCH (10:34)
[2023-11-17] MEDS: Amiodarone 200 MG TAB PO SCH ×2 (10:35→20:40)
[2023-11-17] MEDS ORDERED: PROPOFOL 0 ML ONE ×2 (10:42→11:38)
[2023-11-17] MEDS: Naloxegol 12.5 MG TAB PO SCH (10:44)
[2023-11-17] MEDS: Colestipol 1 GM TAB PO SCH ×2 (10:44→21:30)
[2023-11-17] MEDS: Polyethylene Glycol 3350 17 GM Packet PO SCH (10:45)
[2023-11-17] MEDS ORDERED: Lidocaine 2% PF 5 ML VIAL ONE (11:42)
[2023-11-17] MEDS ORDERED: ePHEDrine Sulfate 50 MG/10 ML VIAL ONE (11:42)
[2023-11-17] MEDS ORDERED: PROPOFOL 20 ML ONE (11:42)
[2023-11-17] MEDS: Ferrous Sulfate 325 MG TAB PO SCH (12:27)
[2023-11-17] MEDS: Sodium Chloride 1 GM TAB PO SCH ×3 (12:28→21:31)
[2023-11-17] MEDS: Sodium Chloride 0.9% 1,000 ML IV SCH (12:49)
[2023-11-17] MEDS ORDERED: Morphine 4 MG/ML VIAL SLOW IVP SCH (16:00)
[2023-11-17] MEDS: Calcium Carbonate 500 MG ChewTAB PO PRN (20:41)
[2023-11-18] MEDS: Morphine 4 MG/ML VIAL SLOW IVP PRN ×3 (00:32→14:09)
[2023-11-18] MEDS: Sodium Chloride 0.9% 1,000 ML IV SCH (02:17)
[2023-11-18] MEDS: Levothyroxine Sodium 88 MCG TAB PO SCH (05:50)
[2023-11-18 06:00] LABS: #Eosinphils 0.1 10x3/uL (0.0-0.5); #Monocytes 0.6 10x3/uL (0.0-1.1); #Neutrophils 7.7 10x3/uL (1.5-8.4); %Basophils 0.1 % (0.0-2.0); %Eosinophils 0.9 % (0.0-6.0); %Lymphocytes 10.3 % (18.0-47.0); %Monocytes 6.6 % (0.0-10.0); Hematocrit 25.5 % (34.9-44.5); Hemoglobin 7.3 g/dL (12.0-15.5); Mean Corpuscular HGB CONC 28.6 g/dL (32.0-36.0); Mean Corpuscular Volume 80.2 fl (81.6-98.3); Mean Platelet Volume 9.3 fl (7.4-10.4); Platelet Count 166 10x3/uL (150-450); RBC Distribution Width 19.5 % (11.5-14.5); Red Blood Cell (RBC) Count 3.18 10x6/uL (3.90-5.03); White Blood Cell (WBC) Count 9.5 10x3/uL (3.5-10.5)
[2023-11-18 06:12] LABS: Anion Gap 11 mmol/L (10-20); BUN (Urea Nitrogen) 39 mg/dL (9.8-20.1); Calc. Creatinine Clearance 42 mL/min (70-130); Calcium 9.2 mg/dL (7.8-10.44); Carbon Dioxide 24 mmol/L (23-31); Chloride 104 mmol/L (98-107); Estimated GFR 43; Glucose 99 mg/dL (80-115); Potassium 4.6 mmol/L (3.5-5.1); Sodium 134 mmol/L (136-145)
[2023-11-18] MEDS: Amiodarone 200 MG TAB PO SCH (08:08)
[2023-11-18] MEDS: Rosuvastatin 10 MG TAB PO SCH (08:08)
[2023-11-18] MEDS: Ferrous Sulfate 325 MG TAB PO SCH (08:08)
[2023-11-18] MEDS: Apixaban 2.5 MG TAB PO SCH (08:08)
[2023-11-18] MEDS: Gabapentin 300 MG CAP PO SCH ×2 (08:08→14:09)
[2023-11-18] MEDS: Carvedilol 25 MG TAB PO SCH (08:08)
[2023-11-18] MEDS: Folic Acid/Vit B Comp W-C PO SCH (08:09)
[2023-11-18] MEDS: Allopurinol 300 MG TAB PO SCH (08:09)
[2023-11-18] MEDS: Naloxegol 12.5 MG TAB PO SCH (08:09)
[2023-11-18] MEDS: Spironolactone 25 MG TAB PO SCH (08:09)
[2023-11-18] MEDS: Escitalopram Oxalate 10 mg Tablet PO SCH (08:09)
[2023-11-18] MEDS: Colestipol 1 GM TAB PO SCH (08:10)
[2023-11-18] MEDS: Polyethylene Glycol 3350 17 GM Packet PO SCH (08:10)
[2023-11-18] MEDS: Sodium Chloride 1 GM TAB PO SCH ×2 (08:11→14:10)
[2023-11-18] MEDS: HYDROcodone/Acetaminophen 5/325 mg Tablet PO PRN (09:13)
[2023-11-18] MEDS: Calcium Carbonate 500 MG ChewTAB PO PRN (09:14)
[2023-11-18 12:11] VITALS: TEMP 98.3
[2023-11-18 13:11] VITALS: BP 137/78
== END 2023-11-18 17:00 | DRG 308 ==
LOC: CSHIMCU 19:42 → CSHTELE 11-13 10:45
PROVIDERS: ADMIT Family Medicine; ATTEND Family Medicine
PROC: 5A2204Z Restoration of Cardiac Rhythm, Single (ICD-10-PCS; principal; 2023-11-17)
PROC: B246ZZ4 Ultrasonography of Right and Left Heart, Transesophageal (ICD-10-PCS; 2023-11-17)
DX: I48.19 Other persistent atrial fibrillation (principal); I50.23 Acute on chronic systolic (congestive) heart failure; S82.102A Unspecified fracture of upper end of left tibia, initial encounter for closed fracture; S82.202A Unspecified fracture of shaft of left tibia, initial encounter for closed fracture; E87.1 Hypo-osmolality and hyponatremia; I24.89 Other forms of acute ischemic heart disease; G93.40 Encephalopathy, unspecified; N17.9 Acute kidney failure, unspecified; I13.0 Hypertensive heart and chronic kidney disease with heart failure and stage 1 through stage 4 chronic kidney disease, or unspecified chronic kidney disease; T82.897A Other specified complication of cardiac prosthetic devices, implants and grafts, initial encounter; I48.0 Paroxysmal atrial fibrillation; I25.10 Atherosclerotic heart disease of native coronary artery without angina pectoris; E78.5 Hyperlipidemia, unspecified; J44.9 Chronic obstructive pulmonary disease, unspecified; M10.9 Gout, unspecified; F32.A Depression, unspecified; E03.9 Hypothyroidism, unspecified; I42.9 Cardiomyopathy, unspecified; E87.6 Hypokalemia; N18.30 Chronic kidney disease, stage 3 unspecified; I47.20 Ventricular tachycardia, unspecified; D64.9 Anemia, unspecified; D72.829 Elevated white blood cell count, unspecified; K59.00 Constipation, unspecified; Z95.810 Presence of automatic (implantable) cardiac defibrillator; Z11.52 Encounter for screening for COVID-19; Z88.8 Allergy status to other drugs, medicaments and biological substances; Z79.82 Long term (current) use of aspirin; Z79.899 Other long term (current) drug therapy; Z95.5 Presence of coronary angioplasty implant and graft; Z90.49 Acquired absence of other specified parts of digestive tract; Z90.710 Acquired absence of both cervix and uterus; S82.142D Displaced bicondylar fracture of left tibia, subsequent encounter for closed fracture with routine healing; S20.212A Contusion of left front wall of thorax, initial encounter; W19.XXXA Unspecified fall, initial encounter; S40.022A Contusion of left upper arm, initial encounter; S40.021A Contusion of right upper arm, initial encounter; I11.0 Hypertensive heart disease with heart failure; I48.91 Unspecified atrial fibrillation; I25.2 Old myocardial infarction; F17.290 Nicotine dependence, other tobacco product, uncomplicated
CPT/HCPCS: 36415; 70450; 71045; 72125; 72170; 80048; 80053; 81001; 82550; 82728; 83540; 83550; 83735; 83880; 84443; 84484; 85025; 86850; 86900; 86901; 92960; 93005; 93010; 93306; 93312; 93970; 94760; 96365; 96366; 96374; 96375; 96376; J1160; J1650; J1885; J1940; J2001; J2270; J2272; J2405; J2704; J2930; J3475; J3490; J7050

== ENCOUNTER 2024-05-01 14:20 | Emergency (ER) | payer MEDICARE, BC ==
[2024-05-01] MEDS ORDERED: Dexamethasone 10 MG/ML VIAL ONE (14:53)
[2024-05-01] MEDS ORDERED: cefTRIAXone (ROCEPHIN) 2 GM VIAL ONE (14:53)
[2024-05-01] MEDS ORDERED: Magnesium 2 GM/50 ML BAG (IN WATER) ONE (14:54)
[2024-05-01] MEDS ORDERED: Ipratropium/Albuterol 3 ML NEB ONE (15:04)
[2024-05-01] MEDS ORDERED: Albuterol 2.5 MG (3 mL) NEB ONE (15:04)
[2024-05-01 15:12] LABS: #Basophils 0.03 10x3/uL (0.0-0.2); #Eosinphils 0.01 10x3/uL (0.0-0.5); #Monocytes 0.65 10x3/uL (0.0-1.1); #Neutrophils 8.02 10x3/uL (1.5-8.4); %Basophils 0.3 % (0.0-2.0); %Eosinophils 0.1 % (0.0-6.0); %Lymphocytes 23.5 % (18.0-47.0); %Monocytes 5.7 % (0.0-10.0); Hematocrit 45.5 % (34.9-44.5); Hemoglobin 15.7 g/dL (12.0-15.5); Mean Corpuscular HGB CONC 34.5 g/dL (32.0-36.0); Mean Corpuscular Hemoglobin 31.5 pg (27.0-33.0); Mean Corpuscular Volume 91.2 fL (81.6-98.3); Mean Platelet Volume 9.7 fL (7.4-10.4); Platelet Count 159 10x3/uL (150-450); RBC Distribution Width 20.7 % (11.5-14.5); Red Blood Cell (RBC) Count 4.99 10x6/uL (3.90-5.03); White Blood Cell (WBC) Count 11.5 10x3/uL (3.5-10.5)
[2024-05-01] MEDS ORDERED: HYDROcodone/Acetaminophen 10/325 mg Tablet ONE (15:22)
[2024-05-01 15:26] LABS: ALT (SGPT) 34 U/L (8-55); AST (SGOT) 41 U/L (5-34); Albumin 4.6 g/dL (3.4-4.8); Alkaline Phosphatase 128 U/L (40-110); Anion Gap 20 mmol/L (10-20); BUN (Urea Nitrogen) 72 mg/dL (9.8-20.1); Bilirubin, Total 0.2 mg/dL (0.2-1.2); Calc. Creatinine Clearance 0 mL/min (70-130); Carbon Dioxide 11 mmol/L (23-31); Chloride 106 mmol/L (98-107); Estimated GFR 16; Globulin 2.9 g/dL (2.4-3.5); Glucose 134 mg/dL (80-115); Potassium 4.4 mmol/L (3.5-5.1); Protein, Total 7.5 g/dL (5.8-8.1); Sodium 133 mmol/L (136-145)
[2024-05-01 15:29] LABS: Troponin I 0.072 ng/mL (< 0.028)
[2024-05-01] MEDS ORDERED: Aspirin Chewable 81 MG TAB ONE (15:39)
[2024-05-01 16:15] LABS: Influenza A by NAA Not Detected (NotDetected); Influenza B by NAA Not Detected (NotDetected); SARS-CoV-2 NAA Rapid Test Not Detected (NotDetected)
[2024-05-01] MEDS ORDERED: Morphine 4 MG/ML VIAL ONE (16:51)
== END 2024-05-01 17:38 | disposition short-term general hospital (02) ==
LOC: CSHERS 14:20
DX: J44.1 Chronic obstructive pulmonary disease with (acute) exacerbation (principal); I13.0 Hypertensive heart and chronic kidney disease with heart failure and stage 1 through stage 4 chronic kidney disease, or unspecified chronic kidney disease; N18.9 Chronic kidney disease, unspecified; N17.9 Acute kidney failure, unspecified; E78.5 Hyperlipidemia, unspecified; I48.91 Unspecified atrial fibrillation; F17.290 Nicotine dependence, other tobacco product, uncomplicated; R77.8 Other specified abnormalities of plasma proteins; Z79.01 Long term (current) use of anticoagulants; Z79.899 Other long term (current) drug therapy; Z79.82 Long term (current) use of aspirin
CPT/HCPCS: 36415; 71045; 80053; 83605; 84484; 85025; 87040; 93005; J0696; J1100; J2270; J3475; J7611; J7620

== ENCOUNTER 2024-08-17 08:24 | Emergency (ER) | payer MEDICARE, BC ==
[2024-08-17] MEDS ORDERED: Acetaminophen 325 MG TAB ONE (08:42)
[2024-08-17] MEDS ORDERED: Dexamethasone 10 MG/ML VIAL ONE (08:42)
[2024-08-17] MEDS ORDERED: diphenhydrAMINE 50 MG/ML VIAL ONE (08:42)
[2024-08-17 08:57] LABS: #Basophils 0.03 10x3/uL (0.0-0.2); #Eosinophils 0.15 10x3/uL (0.0-0.5); #Neutrophils 6.51 10x3/uL (1.5-8.4); %Basophils 0.3 % (0.0-2.0); %Eosinophils 1.6 % (0.0-6.0); %Lymphocytes 19.6 % (18.0-47.0); %Monocytes 7.6 % (0.0-10.0); %Neutrophils 70.4 % (40.0-75.0); Hematocrit 41.1 % (34.9-44.5); Hemoglobin 12.5 g/dL (12.0-15.5); Mean Corpuscular HGB CONC 30.4 g/dL (32.0-36.0); Mean Corpuscular Hemoglobin 30.7 pg (27.0-33.0); Mean Platelet Volume 9.4 fL (7.4-10.4); Platelet Count 197 10x3/uL (150-450); Red Blood Cell (RBC) Count 4.07 10x6/uL (3.90-5.03); White Blood Cell (WBC) Count 9.3 10x3/uL (3.5-10.5)
[2024-08-17 09:07] LABS: INR-International Normal Ratio 1.1; PTT 31.4 sec (22.0-33.0); Prothrombin Time 11.4 sec (9.5-12.1)
[2024-08-17 09:11] LABS: ALT (SGPT) Less than 7 U/L (8-55); AST (SGOT) 19 U/L (5-34); Albumin 3.8 g/dL (3.4-4.8); Alkaline Phosphatase 134 U/L (40-110); Anion Gap 15 mmol/L (10-20); BUN (Urea Nitrogen) 28 mg/dL (9.8-20.1); Bilirubin, Total 0.4 mg/dL (0.2-1.2); Calc. Creatinine Clearance 0 mL/min (70-130); Carbon Dioxide 18 mmol/L (23-31); Chloride 107 mmol/L (98-107); Estimated GFR 41; Globulin 3.5 g/dL (2.4-3.5); Glucose 113 mg/dL (80-115); Potassium 4.6 mmol/L (3.5-5.1); Protein, Total 7.3 g/dL (5.8-8.1); Sodium 135 mmol/L (136-145)
[2024-08-17] MEDS ORDERED: Ondansetron PF 4 MG/2 ML Vial ONE (09:40)
[2024-08-17] MEDS ORDERED: Morphine 2 MG/ML VIAL ONE (10:09)
[2024-08-17] MEDS ORDERED: Carvedilol 25 MG TAB ONE (10:10)
== END 2024-08-17 10:42 | disposition home or self-care (01) ==
LOC: CSHERS 08:24
DX: G44.209 Tension-type headache, unspecified, not intractable (principal); I10 Essential (primary) hypertension; F17.290 Nicotine dependence, other tobacco product, uncomplicated; I48.91 Unspecified atrial fibrillation; Z79.01 Long term (current) use of anticoagulants
CPT/HCPCS: 70450; 82962; 85610; 85730; 93005; J1100; J1200; J2272; J2405; 36416; 80053; 84443; 85025; 96374; 96375

== ENCOUNTER 2024-08-20 11:44 | Emergency (ER) | payer MEDICARE, BC ==
[2024-08-20] MEDS ORDERED: Ketorolac Tromethamine 30 MG (1 mL) VIAL ONE (12:54)
[2024-08-20] MEDS ORDERED: Meclizine HCl 25 MG TAB ONE (12:54)
[2024-08-20] MEDS ORDERED: Prochlorperazine 10 MG/2 ML VIAL ONE (12:54)
[2024-08-20 13:15] LABS: #Basophils 0.03 10x3/uL (0.0-0.2); #Eosinophils 0.11 10x3/uL (0.0-0.5); #Monocytes 0.71 10x3/uL (0.0-1.1); #Neutrophils 5.37 10x3/uL (1.5-8.4); %Basophils 0.4 % (0.0-2.0); %Eosinophils 1.4 % (0.0-6.0); %Lymphocytes 20.5 % (18.0-47.0); %Neutrophils 68.1 % (40.0-75.0); Hematocrit 38.5 % (34.9-44.5); Hemoglobin 12.1 g/dL (12.0-15.5); Mean Corpuscular HGB CONC 31.4 g/dL (32.0-36.0); Mean Corpuscular Volume 98.7 fL (81.6-98.3); Platelet Count 164 10x3/uL (150-450); RBC Distribution Width 16.4 % (11.5-14.5); White Blood Cell (WBC) Count 7.9 10x3/uL (3.5-10.5)
[2024-08-20 13:39] LABS: ALT (SGPT) 9 U/L (8-55); AST (SGOT) 19 U/L (5-34); Alkaline Phosphatase 138 U/L (40-110); Anion Gap 15 mmol/L (10-20); BUN (Urea Nitrogen) 37 mg/dL (9.8-20.1); Bilirubin, Total 0.3 mg/dL (0.2-1.2); Calc. Creatinine Clearance 0 mL/min (70-130); Calcium 10.3 mg/dL (7.8-10.44); Carbon Dioxide 17 mmol/L (23-31); Chloride 106 mmol/L (98-107); Estimated GFR 40; Globulin 3.2 g/dL (2.4-3.5); Glucose 131 mg/dL (80-115); Potassium 4.4 mmol/L (3.5-5.1); Protein, Total 7.2 g/dL (5.8-8.1); Sodium 134 mmol/L (136-145)
[2024-08-20] MEDS ORDERED: methylPREDNISolone Sod Succ/PF 125 MG/2 ML VIAL ONE (13:51)
[2024-08-20] MEDS ORDERED: Lidocaine 4% Patch ONE (13:52)
[2024-08-20] MEDS ORDERED: Magnesium 2 GM/50 ML BAG (IN WATER) ONE (13:52)
[2024-08-20 14:12] LABS: Bilirubin Neg (Negative); Blood, Urine Negative (Negative); Clarity Clear (Clear); Glucose, Urine (Dipstick) Normal (Negative); Ketone, Urine Negative (Negative); Leukocyte Negative (Negative); Nitrite Negative (Negative); Protein, Urine (Dipstick) 15 mg/dl (Neg-Trace); Specific Gravity, Urine 1.015 (1.005-1.030); Urobilinogen Normal mg/dL (Less than 2)
[2024-08-20 14:31] LABS: Bacteria/HPF 4+ HPF (None Seen); CAUTI Indications for Culture Acute Hematuria; RBC/HPF None Seen HPF (0-3); Squamous Epithelial 0-3 HPF (0-3); WBC/HPF 0-3 HPF (0-3)
[2024-08-20 14:32] LABS: Urine Culture Reflex No No
== END 2024-08-20 16:18 | disposition home or self-care (01) ==
LOC: CSHERS 11:44
DX: H81.13 Benign paroxysmal vertigo, bilateral (principal); I13.0 Hypertensive heart and chronic kidney disease with heart failure and stage 1 through stage 4 chronic kidney disease, or unspecified chronic kidney disease; I50.9 Heart failure, unspecified; N18.9 Chronic kidney disease, unspecified; M54.2 Cervicalgia; J44.9 Chronic obstructive pulmonary disease, unspecified
CPT/HCPCS: 80053; 81001; 85025; 93005; 94760; 96374; 96375; 99284; J0780; J1885; J2919; J3475